=== PATIENT | male | born 1955 | race African-American/Black ===

== ENCOUNTER 2017-02-19 14:32 | Inpatient (IN) ==
[2017-02-19 15:59] LABS: ALLEN TEST NO; BE 2.6 mmoll (-3.0-3.0); BLOOD TYPE ARTERIAL; DRAW SITE R BRACHIAL; METHB 1.6 % (0.0-1.5); PCO2(98.6) 33 mmHg (35-45); PO2(98.6) 76 mmHg (60-100); SAMPLE BLOOD; SAO2 99.1 % (95.0-100.0)
[2017-02-19 16:00] LABS: MODALITY ROOM AIR
[2017-02-19 16:08] LABS: INR 1.15; PROTIME 12.2 Seconds (9.2-11.7)
[2017-02-19 16:17] LABS: BASO% 0.4 % (0.0-0.8); EOS# 0.02 X1000 (0.0-0.7); EOS% 0.3 % (0.0-10.0); HEMATOCRIT 28.8 % (42.0-52.0); HEMOGLOBIN 9.1 g/dL (14.0-18.0); IMM GRAN# 0.02 X1000 (0.0-0.04); IMM GRAN% 0.3 % (0.0-0.5); LYMPH# 2.36 X1000 (1.2-3.4); MANUAL DIFF NEEDED? YES; MCH 29.8 PG (27-31); MCHC 31.6 g/dL (33-37); MCV 94.4 FL (81-99); MONO# 1.75 X1000 (0.11-0.59); MONO% 22.3 % (1.7-9.3); NEUT% 46.7 % (42.2-75.2); PLT 70 X1000 (130-400); PTT 56.7 Seconds (22.0-36.0); RBC 3.05 XMIL (4.7-6.1)
[2017-02-19 16:22] LABS: AGAP 15; ALBUMIN 3.2 g/dL (3.5-5.0); ALKALINE PHOSPHATASE 134 U/L (32-122); BUN 15 mg/dL (8-22); CALCIUM 9.1 mg/dL (8.8-10.2); CHLORIDE 102 mmol/L (98-107); CK PROFILE 105 U/L (24-204); COSMO 285; GOT 40 U/L (10-34); GPT 24 U/L (10-44); POTASSIUM 3.8 mmol/L (3.5-5.1); SODIUM 141 mmol/L (136-145); TCO2 24 mmol/L (25-35); TOTAL BILIRUBIN 0.97 mg/dL (0.20-1.00); TOTAL PROTEIN 6.4 g/dL (6.3-8.3)
[2017-02-19 16:26] LABS: LYMPHS 28 % (21-51); MONO 16 % (1-9)
[2017-02-19] MEDS ORDERED: ATIVAN IV ONE (16:28)
--- NOTE | 2017-02-19 17:20 | PROVIDER DOCUMENTATION ---
This chart was entered by Sweetie Negrete Scribe, acting as scribe for Pam Morton MD. HPI-Neurological Disorder - General Chief Complaint: Altered Mental Status Stated Complaint: WEAKNESS,DISORIENTED Time Seen by Provider: 02/19/17 14:50 Source: patient Allergies/Adverse Reactions: Patient Allergies Allergy/AdvReac Type Severity Reaction Status Date / Time No Known Allergies Allergy Verified 02/19/17 17:07 Home Medications: Home Medication List Medication Instructions Recorded Confirmed Last Taken Type Furosemide [Lasix] 20 meq PO DAILY 06/28/16 11/25/16 11/23/16 08:00 History Gabapentin 300 mg PO DIRECTED 06/28/16 11/25/16 11/25/16 08:00 History Valacyclovir [Valtrex] 500 mg PO BID 06/28/16 11/25/16 11/25/16 08:00 History Zinc Sulfate 220 mg PO DAILY 06/28/16 11/25/16 11/25/16 08:00 History - History of Present Illness-Neuro Nature of Presenting Problem: Pt is a 61 yom who came to the ED with a cc of altered mental status. PT reports he is on chemo for lymphoma and had chemo on Tuesday. The reports that the pt is disorientated and confused. Severity: reports: mild Onset/Duration: reports: 24 hours ago Timing: reports: still present Character of Altered Mental Status: reports: disoriented, confused Any recent trauma/injury?: reports: none Character of Deficits: reports: new weakness, altered sensation, decreased ability to walk Associated Symptoms: reports: confusion, weakness Review of Systems - Adult - REVIEW OF SYSTEMS - ADULT Constitutional: denies: chills, fever Eyes: reports: no symptoms reported Ears, Nose, Mouth & Throat: reports: no symptoms reported Cardiovascular: denies: chest pain, heart murmur, orthopnea Respiratory: reports: no symptoms reported Gastrointestinal: denies: diarrhea, nausea, vomiting Genitourinary: reports: no symptoms reported Musculoskeletal: reports: no symptoms reported Integumentary: reports: no symptoms reported Neurological: reports: slurred speech, syncope. denies: ataxia, paresthesia Psychiatric: reports: no symptoms reported Endocrine: reports: no symptoms reported Hematologic/Lymphatic: reports: no symptoms reported Allergic/Immunologic: reports: no symptoms reported All Other Systems: Reviewed and Negative Past History - Adult - PAST MEDICAL HISTORY-ADULT Review of Records: reports: Nursing Assessment Review Major Childhood Illnesses: reports: denies history Cardiovascular: reports: denies history Respiratory: reports: sleep apnea Gastrointestinal: reports: denies history Obstetrical/Gynecological: reports: denies history Genitourinary: reports: kidney disease Musculoskeletal: reports: denies history Neurological: reports: Seizures/Epilepsy Psychiatric: reports: other (brain tumor) Endocrine/Immune: reports: Leukemia (Followed by Dr. Crockett) Other Conditions: reports: denies history - PRIOR SURGERIES/PROCEDURES Surgical/Procedure History: reports: appendectomy, cholecystectomy, hernia repair, orthopedic (extremity) (left knee) - PRIOR HOSPITALIZATIONS Prior Hospitalizations: reports: for similar symptoms - IMMUNIZATION STATUS Childhood Immunizations: See Nurse Assessment Flu Vaccine: See Nurse Assessment - FAMILY HISTORY Family History: reviewed, not pertinent Physical Exam- Neurological - Physical Exam-Neuro General Appearance: no apparent distress, lethargic HENMT: normocephalic/atraumatic, moist mucous membranes Head Injury: no evidence of injury Neck: non-tender Respiratory: chest non-tender, lungs clear Cardiovascular: normal peripheral pulses, regular rate, rhythm Abdominal Exam: normal bowel sounds, non tender, soft Psych/Mental Status: disoriented x 3 - Glascow Coma Scale Best Eye Response: (3) open to voice Best Verbal Response: (4) confused conversation Best Motor Response: (6) obeys commands Total Glascow Score: 13 Progress - PLAN OF CARE/RESULTS Progress/Plan/Lab Results: Vital Signs - 8 hr 02/19/17 14:35 Temperature 97.4 F L Pulse Rate 107 H Respiratory Rate 20 Blood Pressure 126/83 O2 Sat by Pulse Oximetry 98 Laboratory Results - last 24 hr 02/19/17 02/19/17 02/19/17 14:58 14:58 14:58 WBC RBC Hgb Hct MCV MCH MCHC RDW Std Deviation Plt Count MPV Immature Gran % (Auto) Neut % (Auto) Lymph % (Auto) [place] % (Auto) Eos % (Auto) Baso % (Auto) Immature Gran # (Auto) Neut # (Auto) Lymph # (Auto) [place] # (Auto) Eos # (Auto) Baso # (Auto) Segmented Neutrophils Lymphocytes Monocytes Myelocytes Atypical Lymphocytes Anisocytosis PT 12.2 H INR 1.15 PTT (Actin FS) 56.7 H Specimen Type Sample Site pH pCO2 pO2 HCO3 Base Excess Oxyhemoglobin ABG O2 Sat (Calculated) ABG O2 Saturation ABG Carboxyhemoglobin ABG Methemoglobin Bijan Test A-a O2 Difference Total Hemoglobin Lactate Blood Gas Modality FiO2 % Sodium 141 Potassium 3.8 Chloride 102 Carbon Dioxide 24 L Anion Gap 15 BUN 15 Creatinine 1.2 Estimated GFR/1.73 m2 > 60 BUN/Creatinine Ratio 13 Glucose 153 H Calculated Osmolality 285 Calcium 9.1 Total Bilirubin 0.97 AST 40 H ALT 24 Alkaline Phosphatase 134 H Creatine Kinase 105 Troponin T Total Protein 6.4 Albumin 3.2 L Globulin 3.2 Albumin/Globulin Ratio 1.0 Plasma/Serum Ethyl Alc 02/19/17 02/19/17 02/19/17 14:58 14:58 15:50 WBC 7.86 RBC 3.05 L Hgb 9.1 L Hct 28.8 L MCV 94.4 MCH 29.8 MCHC 31.6 L RDW Std Deviation 19.2 H Plt Count 70 L MPV Not Reportable Immature Gran % (Auto) 0.3 Neut % (Auto) 46.7 Lymph % (Auto) 30.0 [place] % (Auto) 22.3 H Eos % (Auto) 0.3 Baso % (Auto) 0.4 Immature Gran # (Auto) 0.02 Neut # (Auto) 3.68 Lymph # (Auto) 2.36 [place] # (Auto) 1.75 H Eos # (Auto) 0.02 Baso # (Auto) 0.03 Segmented Neutrophils 53 Lymphocytes 28 Monocytes 16 H Myelocytes 1.0 Atypical Lymphocytes 2.0 Anisocytosis 1+ PT INR PTT (Actin FS) Specimen Type ARTERIAL Sample Site R BRACHIAL pH 7.50 H pCO2 33 L pO2 76 HCO3 26.9 H Base Excess 2.6 Oxyhemoglobin 94.1 L ABG O2 Sat (Calculated) 12.0 L ABG O2 Saturation 99.1 ABG Carboxyhemoglobin 3.40 H ABG Methemoglobin 1.6 H Bijan Test NO A-a O2 Difference 32.0 Total Hemoglobin 9.0 L Lactate 1.80 Blood Gas Modality ROOM AIR FiO2 % 21.0 Sodium Potassium Chloride Carbon Dioxide Anion Gap BUN Creatinine Estimated GFR/1.73 m2 BUN/Creatinine Ratio Glucose Calculated Osmolality Calcium Total Bilirubin AST ALT Alkaline Phosphatase Creatine Kinase Troponin T < 0.010 Total Protein Albumin Globulin Albumin/Globulin Ratio Plasma/Serum Ethyl Alc Orders Category Date Time Status Cardiac Monitoring DIRECTED Care 02/19/17 15:31 Active Finger Stick Blood Sugar (ED) DIRECTED Care 02/19/17 15:31 Active Saline Loc NOW Care 02/19/17 15:31 Active CHEST-PORTABLE [RAD] Stat Exams 02/19/17 15:31 Taken HEAD/C-SPINE W/O CONTRAST [CT] Stat Exams 02/19/17 15:32 Taken ABG [RESP] Routine Lab 02/19/17 15:50 Completed ALCOHOL BLOOD Stat Lab 02/19/17 14:58 Completed BLOOD CULTURE [BLDCUL] Stat Lab 02/19/17 15:54 Results CBC WITH ELECTRONIC DIFF [HEME] Stat Lab 02/19/17 14:58 Completed CK PROFILE [SP CHEM] Stat Lab 02/19/17 14:58 Completed COMPREHENSIVE METABOLIC PANEL [CHEM] Stat Lab 02/19/17 14:58 Completed PROTIME WITH INR [COAG] Stat Lab 02/19/17 14:58 Completed PTT [COAG] Stat Lab 02/19/17 14:58 Completed TROPONIN T Stat Lab 02/19/17 14:58 Completed URINALYSIS W/POSS RFLX CULT-1 [URINALYSIS] Stat Lab 02/19/17 15:31 Uncollected URINE DRUG SCREEN Stat Lab 02/19/17 15:31 Uncollected Lorazepam [Ativan] Med 02/19/17 16:28 Discontinued 1 mg IV NOW ONE Pulse Oximetry Stat Oth 02/19/17 15:31 Active EKG [EKG] Stat Ther 02/19/17 15:31 Ordered Result Diagrams: 02/19/17 14:58 02/19/17 14:58 - REASSESSMENT Reassessment #1 Time Reassessed: 17:15 Status: worsening (Pt is agitated and IV Ativan given. Pt's reports that pt has been doing well with normal functional level even though she has been having chemo for stage IV Lymphoma since one year ago.) - CONSULTS/PCP/HOSPITALIST Notification Time Discussed: 17:20 Reason/Comments: Admit to Dr. Daniels Consult Disposition: Admit Departure - Departure Time of Disposition Decision: 17:19 DIAGNOSIS: Altered mental status Qualifiers: Altered mental status type: unspecified Qualified Code(s): R41.82 - Altered mental status, unspecified Disposition: ADMITTED INPATIENT 09 Certified Medical Emergency: Emergent Condition: Stable Referrals and Follow-Ups: Cristi Lowery [Primary Care Provider] - - Critical Care Note This patient required my direct personal management.: No This chart was documented by the indicated scribe, (Sweetie Negrete Scribe) and accurately reflects the services I performed and decisions made by me, Pam Morton MD, as attested by the provider's signature.
[2017-02-19] MEDS ORDERED: NS 1,000 ML IV ONE (17:32)
--- NOTE | 2017-02-19 17:33 | ED EKG INTERP ---
This chart was entered by Sweetie Negrete Scribe, acting as scribe for Pam Morton MD. EKG Interpretation - EKG Time of EKG reading by physician:: 17:26 EKG Read and Signed by:: Pam Morton EKG Interpretation (*Must complete 3 of following elements*): Normal Rate: 104 Rhythm: sinus tachycardia This chart was documented by the indicated scribe, (Sweetie Negrete Scribe) and accurately reflects the services I performed and decisions made by ar, Pam Morton MD, as attested by the provider's signature.
[2017-02-19 17:35] LABS: URINE CULTURE NEEDED? NO; URINE MICRO REVIEW NEEDED? NO; URINE SOURCE CLEAN CATCH
[2017-02-19 17:41] LABS: BILIRUBIN URINE NEGATIVE (NEGATIVE); BLOOD URINE NEGATIVE (NEGATIVE); COLOR YELLOW; GLUCOSE URINE NEGATIVE (NEGATIVE); LEUKOCYTES URINE NEGATIVE (NEGATIVE); NITRITE URINE NEGATIVE (NEGATIVE); PROTEIN URINE TRACE mg/dL (NEGATIVE); SP GRAVITY URINE 1.019; TURBIDITY URINE CLEAR (CLEAR); UROBILINOGEN URINE 2 mg/dL (NORMAL)
[2017-02-19 17:42] LABS: UR EPITHELIAL CELLS <10 /HPF (<10); URINE BACTERIA NEGATIVE /HPF; URINE RBC <10 /HPF (<10); URINE WBC <10 /HPF (<10)
[2017-02-19 17:51] LABS: UR AMPHETAMINES QUAL NONE DETECTED (NONE DETECT); UR BARBITUATES QUAL NONE DETECTED (NONE DETECT); UR BENZODIAZEPIN QUAL NONE DETECTED (NONE DETECT); UR CANNABINOIDS QUAL NONE DETECTED (NONE DETECT); UR COCAINE QUAL NONE DETECTED (NONE DETECT); UR METHADONE QUAL NONE DETECTED (NONE DETECT); UR OPIATES QUAL NONE DETECTED (NONE DETECT); UR OXYCODONE QUAL NONE DETECTED (NONE DETECT); UR PCP QUAL NONE DETECTED (NONE DETECT)
--- NOTE | 2017-02-19 17:53 | Diag Imaging Result Document ---
PROCEDURE NAME: CHEST-PORTABLE - 02/19/2017 PORTABLE CHEST AT 1548 HOURS: FINDINGS: Compared with 02/03/2016. Heart size appears upper normal. Inspiration is mildly shallow. There is mild atelectasis at the left base. The remainder of the lungs appear essentially clear of acute changes. There is no pleural effusion or pneumothorax identified. There is a central venous catheter with its tip at the expected location of the distal superior vena cava. IMPRESSION: Mildly shallow inspiration with mild left basilar atelectasis. Early infiltrate at the left base cannot be entirely excluded.
[2017-02-19] MEDS ORDERED: ROCEPHIN 1 GM/NS 1 GM/50 ML IVPB IV ONE (18:11)
--- NOTE | 2017-02-19 18:29 | Diag Imaging Result Document ---
PROCEDURE NAME: HEAD/C-SPINE W/O CONTRAST - 02/19/2017 CT OF THE HEAD WITHOUT CONTRAST: FINDINGS: A dose reduction protocol was used. No comparison exam. There is no evidence of intracranial hemorrhage, mass effect, midline shift, or hydrocephalus. There is no evidence of infarct, although acute infarcts may not be immediately visible. There is no skull fracture. IMPRESSION: No visible acute intracranial abnormality. No evidence of intracranial injury. CT CERVICAL SPINE WITHOUT CONTRAST: FINDINGS: A dose reduction protocol was used. Axial, sagittal and coronal images are obtained. There is moderate multilevel degenerative disease. There is apparent associated mild narrowing of spinal canal at C5-6 and possibly C6-7, but there is some limitation of detail in this regard due to artifacts. There is no fracture identified. There is no subluxation seen. There is no precervical soft tissue swelling identified. There are 2 small nodular opacities at the visualized apex of the right lung. These appear stable compared to the CT thorax of 01/27/2016. IMPRESSION: Moderate multilevel degenerative disease. No evidence of fracture or subluxation.
[2017-02-19] MEDS ORDERED: ROCEPHIN 1 GM/NS 1 GM/50 ML IVPB ONE (18:35)
--- NOTE | 2017-02-19 18:49 | HISTORY AND PHYSICAL ---
HISTORY OF PRESENT ILLNESS: 61-year-old followed by Dr. Crockett for non-Hodgkin's lymphoma which I believe he has had for a year. He also is getting insulin and that is because of hyperglycemia secondary to prednisone. Apparently he has had appendicitis, had his gallbladder removed. He has had back surgery. I think this was for disk. Interesting he got hit in 2002 I think he was in the batting cage was hit in the back of the head. They did CAT scan, they found a what sounds like a pituitary adenoma and they went in through the nares in [place] and removed the tumor. It did affect his vision, he reported his vision was better after that. He had chemotherapy I think on Tuesday followed by Dr. Crockett. This last 3 or 4 days he has had more confusion. Only thing different is he was taking Cymbalta again. Now I notice he is on Cymbalta, he is on Neurontin and I think he takes some Seroquel as well and some pain medicine [place], he is also on the Valtrex 500 mg p.o. b.i.d. but denies any fever or chills. Denies any focal neurologic signs. Did not describe any tonic-clonic activity muscles to suggest seizure. No recent fall but his balance is not good. States he stares out in space and he just does not seem to understand questions and just seems to be staring off in space but seems to be a little restless but generally weak. REVIEW OF SYSTEMS: Constitutional: They have not reported any change in his weight or eating or bowel habits or gross hematuria, dysuria. Neurologic: No focal changes just poor balance, poor attention. Endocrinologic/hematologic: No significant history other than hyperglycemia which they are given insulin for because of his prednisone which they are treating for a non- Hodgkin's lymphoma. FAMILY HISTORY: Noncontributory. SOCIAL HISTORY: Do not relay any alcohol or tobacco. PHYSICAL EXAM: VITAL SIGNS: Temperature 97.4 degrees, pulse 106, respirations 20, blood pressure 116/79. HEENT: Pupils look equal. I did not appreciate nystagmus. CVP was less than 6 cm. Cranial nerves and motor strength appeared to be symmetrical. Sensation appeared to be symmetrical moving all extremities. He is a bit restless. He does seem to understand the questions but does not necessarily able to answer it. Apparently he can swallow okay. LUNGS: Are clear anterolateral. CARDIOVASCULAR: Regular rhythm, rate without murmur or S3. ABDOMEN: Soft. SKIN: Warm and dry. Weight 220 pounds, height 6 feet. EXTREMITIES: Without clubbing, cyanosis or edema. LABORATORY DATA: White blood cell count 7860, hematocrit 28, platelet count 70,000, neutrophils 46%, lymphocytes were 30%. Sodium 140, potassium 3.8, chloride 102 bicarb 24, BUN 15, creatinine 1.2, glucose 153, calcium 9.1, AST 40, ALT 24, alkaline phosphatase 134, albumin 3.2, pro time 12.2, PTT was 56. Urine drug screen really unremarkable for opiates, oxycodone, methadone, barbiturates, phencyclidine, amphetamines, benzodiazepines, urine cocaine, urine cannabinoids and serum ethanol urine was clear. Blood gas pH was 7.50, pCO2 33, PO2 76, O2 saturation was 94%. Chest x-ray, mild shallow inspiration, mild left basilar atelectasis, early infiltrate at the left base cannot be entirely excluded. CT of his head I did not see anything acutely, no sign of bleed or infarct. ASSESSMENT AND PLAN: 1. I am suspicious that he has got metabolic encephalopathy and appears to be consistent with a serotonin syndrome. He recently added Cymbalta to his regimen, he is on Seroquel as well. He is taking gabapentin so we are going to hold those including the gabapentin at this point and the Seroquel and Cymbalta, give him some IV fluids. He appears to be a little bit intravascularly volume depleted, those labs look pretty good. 2. Mild intravascular volume depletion. Give him some IV normal saline. 3. We will go ahead and pattern sugars since he was taking insulin at home because of his prednisone, will see how sugars do. We will continue his Valtrex and his zinc sulfate. We will hold Lasix and gabapentin for now. We will check T4 and TSH, B12 and folate in the morning as well as general electrolytes and magnesium and recheck a CBC, will go ahead and check a CPK and troponin as well. Will give him normal saline at 85 mL an hour. We will get an EKG tonight and compare with 1 in the morning and put him on child monitor. cc: Bijan Nowak MD
[2017-02-19] MEDS ORDERED: HALDOL IV ONE (20:01)
[2017-02-19] MEDS ORDERED: TYLENOL PO PRN (21:07)
[2017-02-19] MEDS ORDERED: VALTREX PO SCH (21:07)
[2017-02-19] MEDS ORDERED: ZOFRAN IV PRN (21:07)
[2017-02-19 21:45] LABS: HEMOGLOBIN A1C 5.8 % (4.8-6.0)
[2017-02-19] MEDS ORDERED: STERILE WATER INJ. INJ PRN (22:03)
[2017-02-19] MEDS: HUMULIN R SUBQ SCH (22:30)
[2017-02-19] MEDS: NS 1,000 ML IV SCH (22:39)
[2017-02-19] MEDS: GEODON IM PRN (23:28)
[2017-02-20 05:23] LABS: BASO% 0.3 % (0.0-0.8); EOS# 0.02 X1000 (0.0-0.7); EOS% 0.3 % (0.0-10.0); HEMATOCRIT 25.9 % (42.0-52.0); HEMOGLOBIN 8.1 g/dL (14.0-18.0); LYMPH# 1.82 X1000 (1.2-3.4); MANUAL DIFF NEEDED? YES; MCH 29.3 PG (27-31); MCHC 31.3 g/dL (33-37); MCV 93.8 FL (81-99); MONO# 1.83 X1000 (0.11-0.59); MONO% 28.2 % (1.7-9.3); MPV 12.3 FL (7.4-10.4); NEUT% 43.2 % (42.2-75.2); PLT 81 X1000 (130-400); RBC 2.76 XMIL (4.7-6.1)
[2017-02-20 05:25] LABS: INR 1.16; PROTIME 12.3 Seconds (9.2-11.7); PTT 32.1 Seconds (22.0-36.0)
[2017-02-20 05:38] LABS: LYMPHS 24 % (21-51); MONO 14 % (1-9)
[2017-02-20 05:40] LABS: AGAP 15; ALBUMIN 2.9 g/dL (3.5-5.0); ALKALINE PHOSPHATASE 120 U/L (32-122); BUN 15 mg/dL (8-22); CHLORIDE 105 mmol/L (98-107); COSMO 285; GOT 36 U/L (10-34); GPT 20 U/L (10-44); MAGNESIUM 1.7 mg/dL (1.5-2.7); POTASSIUM 3.6 mmol/L (3.5-5.1); SODIUM 142 mmol/L (136-145); TCO2 22 mmol/L (25-35); TOTAL BILIRUBIN 0.77 mg/dL (0.20-1.00); TOTAL PROTEIN 6.1 g/dL (6.3-8.3)
[2017-02-20 05:59] LABS: FREE T4 1.11 ng/dL (0.93-1.70)
[2017-02-20] MEDS: HUMULIN R SUBQ SCH ×4 (06:10→21:21)
[2017-02-20] MEDS: PRILOSEC PO SCH (09:33)
[2017-02-20] MEDS: NS 1,000 ML IV SCH ×2 (09:33→21:21)
[2017-02-20] MEDS: ZINC SULFATE PO SCH (09:35)
[2017-02-20] MEDS: ATIVAN IV PRN ×7 (09:53→23:37)
--- NOTE | 2017-02-20 10:50 | PROGRESS NOTE ---
DATE: 02/20/2017 SUBJECTIVE: Mr. Thibodeaux still very agitated. He is talking to me and he is able to cooperate today. I do not feel a lot rigidity. His tremor is gone in his muscles. There is no ocular myoclonus and I cannot elicit any myoclonus now. He seemed to be oriented at least to person but he still very restless and agitated. OBJECTIVE: Vital signs: Blood pressure looks better, pulse is down to 90, temp 98.8 degrees, pulse 89, respirations 22, blood pressure 133/64. Neck: CVP less than 6 cm. Lungs: Clear in all lung reis. Cardiovascular: Regular rhythm and rate without murmur or S3. Intake and output: Urine output over 2 L. LAB: White count 6,490, hematocrit 25, platelet count 81,000. Chemistries: Blood sugar 120, 131. Lab this morning. Sodium 142, potassium 3.6, chloride 105, bicarb 22, BUN 15, creatinine 1.1. B12 was 1,259. Folate was 30.4. T4 1.11. Folate 2.29. Creatine kinase is only 164. ASSESSMENT AND PLAN: Hyper serotonin syndrome, serotonin toxicity syndrome. Continue to hold the Neurontin, Seroquel, and his pain medicine. He was on a serotonin uptake inhibitor which we are not sure when he stopped that but I think clinically he has mildly improved. Will use Ativan. Continue his IV fluid. Reassurance to the family that I do not see any focal neurologic deficits. I do not see any evidence of hyper neuroleptic malignant syndrome or any evidence of any stroke or central neurologic event. We will use Ativan 1-2 mg IV p.r.n. agitation and continue to follow and monitor. cc: Bijan Nowak MD
--- NOTE | 2017-02-20 10:54 | Diag Imaging Result Document ---
PROCEDURE NAME: CHEST-1 VIEW - 02/20/2017 CHEST SINGLE VIEW: COMPARISON: Compared to 02/19/2017. FINDINGS: There is a right-sided [id number]. No pneumothorax. Poor inspiratory effort. The heart is not enlarged. The vessels are not distended. No pleural effusions identified. No consolidation. IMPRESSION: Stable chest.
--- NOTE | 2017-02-20 16:28 | CONSULTATION ---
DATE OF CONSULTATION: 02/20/2017 REQUESTING PHYSICIAN: Dr. Nowak. CHIEF COMPLAINT: Patient is a 61-year-old male who was admitted with change in mental status. HPI: He is well known to me. He has non-Hodgkin lymphoma, a variant of CLL/diffuse large B-cell lymphoma, very aggressive behaving malignancy with which he was diagnosed about a year ago. He received R-CHOP chemotherapy initially and unfortunately his disease progressed. He has seen oncologist at [facility] and has subsequently received multiple lines of chemotherapy. His disease continues to progress despite this. [facility] does not have any clinical trials for him. He is almost getting to end-stage at this time. Most recently, his chemotherapy has been compromised due to persistent thrombocytopenia. He is currently very confused. History is obtained from the chart as well as from his sister-in- law. She reports up to about a week ago he was in his usual state of health. At that time he started to have gait instability. Now over the last few days he has had worsening confusion. He has neuropathy for which he has been on Neurontin. He also is on some Seroquel. Recently Cymbalta was added. Dr. Jacome suspected serotonin syndrome and those medicines have been stopped at this time. PAST MEDICAL HISTORY: 1. Lymphoma as discussed. 2. Peripheral neuropathy. 3. Diabetes. SOCIAL HISTORY: Patient is and lives with his . Denies smoking, alcohol, or substance abuse. FAMILY HISTORY: Noncontributory. ALLERGIES: NKDA. CURRENT MEDICATIONS: Rocephin, Humulin, Ativan, Prilosec, Zofran, Geodon. REVIEW OF SYSTEMS: Could not be obtained. PHYSICAL EXAMINATION: General: Patient is in deep sleep at this time. Vital signs: Temperature 100.4 degrees T-max, T current is 98.8, pulse 89, blood pressure 133/64. HEENT: EOMI. Anicteric. Mucous membranes appear moist. Cardiac Exam: Regular rate and rhythm. Normal S1, S2. Chest: Clear to auscultation. Abdomen: Protuberant, soft, nontender, without hepatosplenomegaly or masses. Extremities: No cyanosis, clubbing, or edema. Neurological: He is moving all 4 extremities. Lymph node survey: Large 10-12 cm lymph node mass is noted in his right groin as well as in his right axilla. He also other small lymph nodes. LABORATORY DATA: White count 6.4, hemoglobin 8.1, hematocrit 25, MCV 93, platelets 81,000. BUN 15, creatinine 1.1. LFTs are normal. B12, folate levels are adequate. UA is negative. RADIOLOGY: CT of the head and C-spine: No intracranial pathology. ASSESSMENT/PLAN: 1. Change in mental status: Etiology at this time is unclear. He has a slight fever. This could be infectious/metabolic/drug induced. Agree with stopping all medications that could have led to syndrome. He is on antibiotics. Continue to monitor closely. 2. Chronic lymphocytic leukemia/diffuse large B-cell lymphoma: He is nearing end-stage from that standpoint. His therapy has been compromise due to persistent thrombocytopenia. I have had a discussion with him about this and he has voiced understanding in the clinic. Today I also discussed this with his [id number] who was at the bedside. Continue to do the best we can for him but I suspect that in the near future he will probably be on hospice. 3. Thrombocytopenia: B12, folate levels are adequate. This is due to bone marrow suppression from multiple lines of chemotherapy. 4. Fevers: Urinalysis is negative. Monitor blood cultures. Continue antibiotic. cc: Deepak Crockett MD
[2017-02-20] MEDS: ROCEPHIN 1 GM/NS 1 GM/50 ML IVPB IV SCH (18:22)
[2017-02-21] MEDS: ATIVAN IV PRN ×5 (01:33→12:59)
[2017-02-21 05:21] LABS: BASO% 0.3 % (0.0-0.8); EOS# 0.03 X1000 (0.0-0.7); EOS% 0.3 % (0.0-10.0); HEMATOCRIT 27.1 % (42.0-52.0); HEMOGLOBIN 8.5 g/dL (14.0-18.0); IMM GRAN# 0.02 X1000 (0.0-0.04); IMM GRAN% 0.2 % (0.0-0.5); LYMPH# 2.38 X1000 (1.2-3.4); LYMPH% 27.3 % (20.5-51.1); MANUAL DIFF NEEDED? YES; MCH 29.3 PG (27-31); MCHC 31.4 g/dL (33-37); MCV 93.4 FL (81-99); MONO# 2.17 X1000 (0.11-0.59); MONO% 24.9 % (1.7-9.3); MPV 12.5 FL (7.4-10.4); PLT 78 X1000 (130-400)
[2017-02-21 05:38] LABS: AGAP 16; ALKALINE PHOSPHATASE 114 U/L (32-122); BUN 10 mg/dL (8-22); CALCIUM 9.2 mg/dL (8.8-10.2); CHLORIDE 100 mmol/L (98-107); COSMO 273; GOT 38 U/L (10-34); GPT 20 U/L (10-44); MAGNESIUM 1.6 mg/dL (1.5-2.7); SODIUM 137 mmol/L (136-145); TCO2 21 mmol/L (25-35); TOTAL BILIRUBIN 0.97 mg/dL (0.20-1.00); TOTAL PROTEIN 6.1 g/dL (6.3-8.3)
[2017-02-21] MEDS: HUMULIN R SUBQ SCH ×4 (06:03→20:24)
[2017-02-21 06:14] LABS: BANDS 4 % (0-1); HYPOCHROM 1+; LYMPHS 24 % (21-51); MONO 18 % (1-9)
--- NOTE | 2017-02-21 06:27 | EKG Report ---
Test Performed on : 02/20/2017 06:21:40 AM Test Reason : evaluate qtc Blood Pressure : / mmHG Vent. Rate : 089 BPM Atrial Rate : 089 BPM P-R Int : 232 ms QRS Dur : 086 ms QT Int : 384 ms P-R-T Axes : 049 042 048 degrees QTc Int : 467 ms Sinus rhythm. with 1st degree AV block. Otherwise normal ECG When compared with ECG of 19-FEB-2017 17:26, (Unconfirmed) NV interval has increased Confirmed by Asha QUISPE, Rodrigo Hilliard ([id number]) on 02/21/2017 8:15:49 AM
[2017-02-21] MEDS: NS 1,000 ML IV SCH ×2 (08:45→20:23)
--- NOTE | 2017-02-21 10:02 | PROGRESS NOTE ---
DATE: 02/21/2017 SUBJECTIVE: Mr. Thibodeaux slept pretty much since 4:30. We had given him Ativan. He is sleeping pretty sound, difficult to arouse. He is moving all extremities. Noticed a little bit of signs of sleep apnea as well. OBJECTIVE: Vital Signs: Temperature 100.8 degrees, pulse 106, respirations 24, and blood pressure 131/71. HEENT: Pupils were equal, round. Neck: CVP less than 6 cm. Lungs: Clear in all lung reis. Cardiovascular: Regular rhythm and rate without murmur or S3. Abdomen: Soft. Skin: Warm and dry. Genitourinary: Good urine output. LABORATORIES: White count 8710, hematocrit 27, platelet count 78,000. Sodium 137, potassium 4.0, chloride 100, bicarb 21, creatinine 1.1. Blood sugar 160, 98, 100. He had a CT of the head done on the , and of the neck. No sign of intracranial injury. Moderate multiple level degenerative disk disease in the cervical spine. Dr. Deepak Crockett involved. He has chronic lymphocytic leukemia, diffuse large B-cell lymphoma. He is near end-stage from that standpoint. His therapy has been compromised due to persistent thrombocytopenia. Had a discussion with him and voiced an understanding in the clinic. Dr. Deepak Crockett has had a consultation with him and voiced his understanding. Discussed with [id number] at the bedside. Still feels like his general metabolic encephalopathy is consistent with serotonin syndrome. We will back down on his Ativan before. General nutrition and labs, note his blood sugars looked well controlled. cc: Bijan Nowak MD
[2017-02-21] MEDS: PRILOSEC PO SCH (10:38)
[2017-02-21] MEDS: ZINC SULFATE PO SCH (10:39)
[2017-02-21] MEDS ORDERED: BLISTEX MEDICATED BERRY LIP BALM TOP PRN (17:44)
[2017-02-21] MEDS: ROCEPHIN 1 GM/NS 1 GM/50 ML IVPB IV SCH (17:51)
[2017-02-21] MEDS: GEODON IM PRN (17:52)
--- NOTE | 2017-02-21 18:14 | Diag Imaging Result Document ---
PROCEDURE NAME: MRI BRAIN W W/O CONTRAST - 02/21/2017 MRI BRAIN WITH AND WITHOUT IV CONTRAST: COMPARISON: None available. FINDINGS: There is no evidence of acute infarct. There is mild patchy T2/FLAIR hyperintensity in the periventricular and subcortical white matter suggesting mild microangiopathy. There is no evidence of intracranial mass, mass effect, or intracranial hemorrhage. There is no evidence of abnormal intracranial enhancement. Surrounding soft tissues and bony structures are essentially unremarkable. There is no evidence of hydrocephalus. IMPRESSION: Mild T2/FLAIR signal hyperintensity in the periventricular and subcortical white matter suggesting mild microangiopathy most likely. No evidence of acute intracranial pathology.
[2017-02-21] MEDS ORDERED: OFIRMEV 1000 MG/ISOTONIC SOLN 1,000 MG/100 ML BOTTLE IV PRN ×2 (23:22→23:25)
[2017-02-22] MEDS: ATIVAN IV PRN ×2 (02:24→12:48)
[2017-02-22 05:07] LABS: BASO% 0.3 % (0.0-0.8); EOS# 0.03 X1000 (0.0-0.7); EOS% 0.3 % (0.0-10.0); HEMATOCRIT 30.6 % (42.0-52.0); HEMOGLOBIN 9.9 g/dL (14.0-18.0); IMM GRAN# 0.04 X1000 (0.0-0.04); IMM GRAN% 0.4 % (0.0-0.5); LYMPH# 2.55 X1000 (1.2-3.4); MANUAL DIFF NEEDED? YES; MCH 30.1 PG (27-31); MCHC 32.4 g/dL (33-37); MONO% 26.4 % (1.7-9.3); NEUT% 48.6 % (42.2-75.2); PLT 78 X1000 (130-400); RBC 3.29 XMIL (4.7-6.1)
[2017-02-22 05:24] LABS: AGAP 20; ALBUMIN 2.9 g/dL (3.5-5.0); ALKALINE PHOSPHATASE 112 U/L (32-122); BUN 13 mg/dL (8-22); CALCIUM 9.5 mg/dL (8.8-10.2); CHLORIDE 99 mmol/L (98-107); COSMO 274; GOT 37 U/L (10-34); GPT 17 U/L (10-44); MAGNESIUM 1.8 mg/dL (1.5-2.7); POTASSIUM 4.3 mmol/L (3.5-5.1); SODIUM 137 mmol/L (136-145); TCO2 18 mmol/L (25-35); TOTAL BILIRUBIN 0.93 mg/dL (0.20-1.00); TOTAL PROTEIN 5.9 g/dL (6.3-8.3)
[2017-02-22] MEDS: HUMULIN R SUBQ SCH ×4 (06:35→20:12)
[2017-02-22 06:45] LABS: LYMPHS 26 % (21-51); MONO 12 % (1-9)
[2017-02-22] MEDS: NS 1,000 ML IV SCH ×2 (08:11→19:00)
[2017-02-22] MEDS: PRILOSEC PO SCH (08:16)
[2017-02-22] MEDS: ZINC SULFATE PO SCH (08:16)
--- NOTE | 2017-02-22 08:28 | CONSULTATION ---
DATE OF CONSULTATION: 02/21/2017 CONSULTATION REQUESTED BY: This patient is seen in consultation at the request of Dr. Nowak. REASON FOR CONSULTATION: Evaluation of altered mental status and possible serotonin syndrome. 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 His last dose of chemotherapy was on 02/14/17. There is also a history of one witnessed seizure about 10-15 years ago. The patient was admitted on February 19 with progressively worsening mental status changes. I was able to speak with his son on the telephone this afternoon who gave me the details. The patient is unable to provide any information due to his mental status. The son says that he was in his usual state of health. He started a new medication, Cymbalta, some time around the week of February 07, which he took for a handful of days and then discontinued this medication on February 12. He had chemo a couple of days later on 02/14 and then on Tuesday the , he was noted to be confused, saying things that did not make any sense. He was calling his son by various other people's names. He was staring off into space at times. He was also complaining that he was dizzy and his gait was staggering. No fevers or chills or other signs or symptoms were noted. He progressively worsened during the week so they brought him into the ED. There was concern for serotonin syndrome due to his medications as well as autonomic instability, blood pressure and pulse being variable and patient agitation. His Cymbalta, gabapentin, Seroquel, and his pain medications are on hold and he was given Ativan as needed. He has also been put on ceftriaxone. He has developed a low grade fever. A noncontrasted head CT did not show any acute findings. His agitation has improved on ativan and he has been more drowsy. Of note, the son says the patient had a head injury 10-15 years ago and that he witnessed the patient have a seizure about 3 weeks after the head injury. The patient came into the room, fell down in front of him and was shaking all over. This lasted for maybe 4 or 5 minutes and he was confused afterwards. He was seen in the emergency room but they do not recall him being on any medications for this. He has not had any further events with shaking, however, he did have an episode of fainting more recently, maybe a few months ago. PAST MEDICAL HISTORY: 1. CLL/diffuse large B cell lymphoma. 2. Peripheral neuropathy. 3. Blood glucose elevation in setting of steroid treatment for cancer SOCIAL HISTORY: He is and lives with his . He has been a nonsmoker. No alcohol or substance abuse. FAMILY HISTORY: His family history is noncontributory. ALLERGIES: No known drug allergies. MEDICATIONS, CURRENT: 1. Ceftriaxone. 2. Lorazepam p.r.n. 3. Zofran p.r.n. 4. Omeprazole. 5. Insulin. 6. Tylenol. 7. Zinc sulfate. 8. Geodon. REVIEW OF SYSTEMS: Review of systems was unable to be conducted due to the patient's mental status. PHYSICAL EXAMINATION: Vital signs: Temperature 100.0 Fahrenheit, blood pressure 130s to 140s over 70s, pulse 104-106, respiratory rate 24. Room air. General: Somnolent. Snoring. HEENT: Anicteric. Mucous membranes are dry. Cardiac: Regular rate and rhythm. Lungs: Clear anteriorly. Abdomen: Soft, nontender. Extremities: No cyanosis. No edema. Neurologic: MENTAL STATUS: somnolent, arouses to loud voice briefly, will look towards you before drifting back into sleep. Not following commands. Unable to wake up and speak. CRANIAL NERVES: PERRL. Miotic; 3-->2 OU. Dolls eyes +. Face appears to be symmetrical. No nystagmus. MOTOR: Normal bulk and tone. No fasciculations. No abnormal movements. He moves all extremities against gravity and away from painful stimulus. REFLEXES: symmetric and reduced throughout. Equivocal Babinski on the right, flexor on left. No clonus. No Quesada's. SENSORY: He responds to painful sensation on all extremities. CEREBELLAR/COORDINATION/GAIT:Unable to assess due to mental status. DIAGNOSTIC DATA: White count 8.71, hemoglobin 8.5, hematocrit 27.1, platelets 78. INR 1.16. Sodium 137, potassium 4, carbon dioxide 21, BUN 10, creatinine 1.1, glucose 98. A1c 5.8. Calcium 9.2, magnesium 1.6, AST 38, ALT 20, alkaline phosphatase 114. CK 164. Vitamin B12 is 1259. Folate 30.4. TSH 2.29. Free T4 is 1.11. Urinalysis: No evidence of infection. Toxicology screen was negative. Chest x-ray: Early infiltrate at the left base cannot be entirely excluded. Head CT was personally reviewed and agree with the interpretation of the radiologist. There is no acute intracranial abnormality. ASSESSMENT AND PLAN: This is a 61-year-old right-handed male with a history of aggressive CLL/diffuse large B cell lymphoma, on chemotherapy and steroids, h/o possible remote seizure 3 weeks after a head injury, who presents with progressively worsening altered mental status and complaints of dizziness and gait instability since last week. He has been treated for possible serotonin syndrome with prn ativan and withholding cymbalta, gabapentin, seroquel and pain medications due to initially having autonomic instability and agitation, though this has improved since his admission. A noncontrasted head CT was unremarkable. A chest x-ray showed possible left lower lobe early infiltrate. Encephalopathy: The differential diagnosis of this patient's altered mental status includes drugs/medication effects, infection ([employer] or otherwise), subclinical seizures, and intracerebral pathology, though there is no clear focality on examination. 1. Agree with treatment of possible serotonin syndrome. Would also caution use of zofran. 2. MRI brain w/wo contrast; eval cancer involvement as well as stroke 3. Given his h/o cancer and treatment with chemotherapy and steroids, would recommend lumbar puncture to r/o infection. Would suggest considering obtaining a large volume tap to send also for cytology , if his oncologist agrees. 4. Routine EEG to evaluate encephalopathy and evidence for underlying seizure propensity. H/o seizure and more recent "fainting spell;" staring into space 5. Agree with reducing sedating medications. Let's see how he is now when more alert. 6. Monitor possible lower lobe infiltrate on CXR. Thank you for this consultation. Will follow. cc: Ania Coffman MD [facility]
--- NOTE | 2017-02-22 09:16 | PROGRESS NOTE ---
DATE: 02/22/2017 SUBJECTIVE: Mr. Thibodeaux was sleeping. The family said he did a little better yesterday, woke up and grunted some, seemed to be a little more relaxed. He did have a fever; I think he got up to 101 yesterday. OBJECTIVE: Vital Signs: Temp 98.2 degrees, pulse 100, respirations 20, blood pressure 105/76. HEENT: The pupils are equal, round. CVP less than 6 cm. Lungs: Clear in all lung reis. Cardiovascular exam: Regular rhythm and rate without murmur or S3. LABS AND X-RAYS: Urine output was over 3 L. White count 10,610, hematocrit 30, platelet count 78,000. Chemistry: Sodium 137, potassium 4.3, chloride 99, bicarbonate 18. BUN 13, creatinine 1.1. Blood sugars 109, 106, 90 and 91. Brain MRI done yesterday suggested mild microangiopathy, most likely no evidence of acute intracranial pathology. No evidence of hydrocephalus. Appreciate Dr. Ania Coffman. IMPRESSION: 1. This is a 61-year-old with a history of diffuse large B-cell lymphoma aggressively treated and possibly remote seizure 3 weeks after head injury in the past with general encephalopathy. I still believe that is most consistent with hyper serotonin. We have backed down on his Ativan. He is having a little bit of a temperature. We will hold off on Tylenol and will watch and obtain blood cultures if he spikes a temp above 101.2. I really do not see any focus of infection at this time. 2. History of a diffuse large B-cell lymphoma, and apparently is not on treatment now and it has progressed with treatment, so may be approaching end-stage for his lymphoma. 3. Nutrition has been good. Hopefully can wake up and start eating again. 4. Thrombocytopenia. B 12 and folate levels are adequate. Review of his orders: We will stop the Geodon. We will continue the zinc sulfate. He is on ceftriaxone; I guess we will continue that for now. We will stop his Tylenol. cc: Bijan Nowak MD
[2017-02-22] MEDS ORDERED: ATIVAN IV ONE ×2 (16:15→16:30)
[2017-02-22] MEDS: ROCEPHIN 1 GM/NS 1 GM/50 ML IVPB IV SCH (17:30)
--- NOTE | 2017-02-22 17:39 | PROGRESS NOTE ---
DATE: 02/22/2017 SUBJECTIVE: The patient became a little more alert yesterday or overnight, and today he was trying to get out of bed, so he was given a dose of Ativan around lunchtime. He spiked a temperature as high as 102.5 late last night, and today it has been up to 100.9. He was given Tylenol for this. OBJECTIVE: Vital signs: Reviewed. Again, patient's temperature was as high as 102.5 overnight. LABORATORY: White count 10.6, hemoglobin 10, hematocrit 31, platelets 78. Sodium 137, potassium 4.3, carbon dioxide 18, BUN 13, creatinine 1.1, glucose 91. AST 37, ALT 17. CK 112. MRI of the brain with and without contrast was personally reviewed and agree with radiology interpretation. He has mild T2 FLAIR signal hyperintensity in the periventricular and subcortical white matter suggesting mild microangiopathy. No acute findings. A chest x-ray on admission showed possible left lower lobe early infiltrate. EEG: moderate generalized slowing indicative of a moderate encephalopathy. No evidence for seizure though this does not rule out a seizure disorder. ASSESSMENT AND PLAN: This is a 61-year-old right-handed male with a history of progressive chronic lymphocytic leukemia/diffuse large B cell lymphoma, on chemotherapy and steroids, history of possible remote seizure three weeks following a head injury, who presents with progressively worsening altered mental status with dizziness and gait instability over last week. 1. Encephalopathy. The differential diagnosis of patient's altered mental status includes drugs/medication effects, infection ([employer] or otherwise), subclinical seizures. 2. The patient has spiked a temperature as high as 102.5 overnight. Would recommend lumbar puncture to rule out infection. If doing a lumbar puncture, would recommend a high-volume tap to obtain enough cerebrospinal fluid to send for cytology as well. He has been on ceftriaxone. Recommend to cover for meningitis until CSF results. 3. EEG shows moderate encephalopathy but no evidence for seizure at this time. 4. Agree with reducing sedating medications as able. 5. Monitor the possible lower lobe infiltrate on chest x-ray. cc: Ania Coffman MD [facility]
[2017-02-22 17:42] LABS: DIFF NEEDED? NO
[2017-02-22 17:52] LABS: DIFF NEEDED? NO
[2017-02-22 18:07] LABS: GLUCOSE CSF 60 mg/dL (39-75)
[2017-02-22 18:12] LABS: FLOW CYTOMETERY SOURCE CSF; LEUKEMIA LYMPHOMA BY FLOW REFERRED FOR TESTING
[2017-02-22 19:07] LABS: APPEARANCE CLEAR; APPEARANCE RED; RBC BF 136 /cumm; RBC BF 14040 /cumm; WBC BF 0 /cumm
--- NOTE | 2017-02-22 19:07 | OPERATIVE NOTE ---
PROCEDURE DATE : 02/22/2017 PROCEDURE: Lumbar puncture. INDICATION FOR PROCEDURE: This is a 61-year-old male with CLL/large B cell lymphoma on chemotherapy who presents with altered mental status and fevers. The patient's son consented to the procedure after the risks and benefits were explained and all questions were answered. The patient is unable to consent because of his mental status changes. The patient had a lumbar puncture done in the left lateral decubitus position. He was prepped and draped in the usual sterile fashion. After some difficulty with obtaining the CSF initially, it was ultimately obtained with the assistance of Dr. Harirs. The opening pressure was 13 cm CSF. The CSF was collected in 4 tubes (approximately 15-16cc ) and sent for testing. The patient tolerated the procedure well. cc: Ania Coffman MD [facility]
--- NOTE | 2017-02-22 19:21 | EEG REPORT ---
DATE: 02/21/2017 EEG #: [id number]. REFERRING PHYSICIAN: Ania Coffman MD OIL RIGGER: Maxine Suarez. ROUTINE: BACKGROUND INFORMATION: TECHNIQUE: This is a digitally recorded EEG with 1 EKG channel. HISTORY OF PRESENT ILLNESS: A 61-year-old right-handed male with history of non-Hodgkin's lymphoma, variant CLL, diffuse large B cell lymphoma on chemotherapy. There is history of a witnessed seizure 10-15 years ago which occurred about 3 weeks following a head injury. He has not been on medications that they know of. No further events. He was admitted with progressive altered mental status and gait difficulty. Routine EEG is ordered to evaluate encephalopathy and detect evidence of possible seizures. EEG FINDINGS: Alpha rhythm: A posterior dominant alpha rhythm is not seen. Background: There is primarily theta more than delta slowing. There are some admixed faster frequencies. Spontaneous variability is fair. Reactivity is fair. Waveforms: No epileptiform discharges. Focal slowing: None. Hyperventilation: Was not performed. Photic stimulation: Produced no driving response. Sleep findings: The patient is drowsy for most of the study and stage II sleep is seen. EKG: Regular R-R interval. IMPRESSION AND RECOMMENDATIONS: Abnormal routine EEG due to: 1. Moderate generalized background slowing indicative of a moderate encephalopathy. Generalized slowing is a nonspecific finding that can be seen in processes that diffusely affect the cerebrum including toxic, metabolic, posthypoxic, pharmacologic, or infectious conditions. 2. No epileptiform abnormalities or seizures were noted. This does not rule out an underlying seizure disorder. cc: MD Bijan Mariano MD
[2017-02-23] MEDS: ATIVAN IV PRN (00:03)
[2017-02-23 05:41] LABS: BASO% 0.3 % (0.0-0.8); EOS# 0.03 X1000 (0.0-0.7); EOS% 0.3 % (0.0-10.0); HEMATOCRIT 30.5 % (42.0-52.0); HEMOGLOBIN 9.5 g/dL (14.0-18.0); IMM GRAN# 0.02 X1000 (0.0-0.04); IMM GRAN% 0.2 % (0.0-0.5); LYMPH# 3.01 X1000 (1.2-3.4); LYMPH% 31.1 % (20.5-51.1); MANUAL DIFF NEEDED? YES; MCH 29.1 PG (27-31); MCHC 31.1 g/dL (33-37); MCV 93.3 FL (81-99); MONO# 2.95 X1000 (0.11-0.59); MONO% 30.5 % (1.7-9.3); MPV 13.1 FL (7.4-10.4); NEUT% 37.6 % (42.2-75.2); PLT 68 X1000 (130-400); RBC 3.27 XMIL (4.7-6.1)
[2017-02-23 06:00] LABS: AGAP 18; ALBUMIN 3.2 g/dL (3.5-5.0); ALKALINE PHOSPHATASE 107 U/L (32-122); BUN 16 mg/dL (8-22); CALCIUM 9.3 mg/dL (8.8-10.2); CHLORIDE 97 mmol/L (98-107); COSMO 275; GOT 46 U/L (10-34); GPT 19 U/L (10-44); MAGNESIUM 1.8 mg/dL (1.5-2.7); POTASSIUM 4.1 mmol/L (3.5-5.1); SODIUM 136 mmol/L (136-145); TCO2 21 mmol/L (25-35); TOTAL BILIRUBIN 0.85 mg/dL (0.20-1.00); TOTAL PROTEIN 5.9 g/dL (6.3-8.3)
[2017-02-23] MEDS: HUMULIN R SUBQ SCH ×4 (06:27→21:15)
[2017-02-23] MEDS: NS 1,000 ML IV SCH ×2 (06:28→20:35)
[2017-02-23 07:22] LABS: BANDS 2 % (0-1); LYMPHS 29 % (21-51); MONO 20 % (1-9)
--- NOTE | 2017-02-23 07:46 | PROGRESS NOTE ---
DATE: 02/23/2017 PATIENT LOCATION: [facility] bed 11. Mr. Thibodeaux seems a little bit more alert today. He was not attentive and did not communicate or follow commands. He moved all of his limbs. There is no meningismus. He does not have evidence of hematoma at the site of the LP yesterday. CSF showed no white cells, high number of red cells as expected on the initial tube which cleared. Culture report is pending. Gram stain was negative. We will await the CSF cytology report. No new suggestion today from a neurologic standpoint. cc: Yasemin Harris III, MD
[2017-02-23] MEDS: ZINC SULFATE PO SCH (09:23)
[2017-02-23] MEDS: PRILOSEC PO SCH (09:23)
--- NOTE | 2017-02-23 09:45 | PROGRESS NOTE ---
DATE: 02/23/2017 SUBJECTIVE: Mr. Thibodeaux was sleeping. He was able to arouse, able to moan a few questions and then go right back to sleep. I do notice he has got some obstructive sleep apnea and maybe some central apnea as well, watching his pattern and watching him breathe. His fever got up to 102.2 yesterday. It is down to 99.9 at the present time. PHYSICAL EXAMINATION: Vital Signs: Pulse 100, respirations 16, blood pressure 124/70. Lungs: Are clear in all lung reis. Cardiovascular Examination: Regular rhythm and rate without murmur or S3. Abdomen: Soft. Skin: Is warm and dry. Is and Os: Urine output over 2 L. LAB: White count 9670, hematocrit 30, platelet count 68,000, his lymphocytes were 31%. ASSESSMENT AND PLAN: 1. Altered mental status with sensorium. Performed a spinal tap yesterday. I suspect a serotonin syndrome but it may be multifactorial. He does have a history of lymphoma and diffuse large B-cell lymphoma. The patient is still very lethargic. He seems to be able to arouse. He seems to be less agitated, less autonomic agitation. We did an MRI of the brain and CT of the head, and it was unremarkable. Dr. Ania Coffman is following. He is having fever which may be consistent more with the lymphoma. He really is not waking up much at all, which is discouraging. We will back down on any sedation. We will give him Ativan just as needed. Of course, he required something for the spinal tap. 2. Diffuse large B-cell lymphoma. 3. Thrombocytopenia, aware. 4. Review of his orders. Continue the ceftriaxone 1 g every 24 hours, although they do not have any source of bacterial infection identified. Check a chest x-ray this morning. His blood work from this morning, hematocrit stable at 30. He does have a platelet count of 68,000. Electrolytes look good. Blood sugars have been 110, 128, 129. cc: Bijan Nowak MD
--- NOTE | 2017-02-23 10:47 | EKG Report ---
Test Performed on : 02/23/2017 10:15:36 AM Test Reason : CP Blood Pressure : / mmHG Vent. Rate : 106 BPM Atrial Rate : 106 BPM P-R Int : 180 ms QRS Dur : 080 ms QT Int : 378 ms P-R-T Axes : 053 060 052 degrees QTc Int : 502 ms Sinus tachycardia. Otherwise normal ECG When compared with ECG of 20-FEB-2017 06:21, NE interval has decreased Confirmed by Saurav QUISPE, Uriel Hilliard ([id number]) on 02/24/2017 12:07:58 PM
--- NOTE | 2017-02-23 10:52 | Diag Imaging Result Document ---
PROCEDURE NAME: CHEST-PORTABLE - 02/23/2017 SINGLE FRONTAL RADIOGRAPH OF THE CHEST: COMPARISON: 02/20/2017. FINDINGS: Right chest port is in stable position. Inspiration is suboptimal. This is similar to the previous study. No new consolidations are identified. Cardiac silhouette is stable. IMPRESSION: Stable chest with no definite acute pathology.
[2017-02-23] MEDS: ROCEPHIN 1 GM/NS 1 GM/50 ML IVPB IV SCH (17:38)
--- NOTE | 2017-02-23 20:53 | CONSULTATION ---
DATE OF CONSULTATION: 02/23/2017 CONCLUSION: Patient is admitted to the hospital. He has an altered mental status. He also has been running a fever. The etiology for both of these findings is uncertain to me. Dr. Nowak has noted that the patient restarted Cymbalta and he wonders if possibly some of the patient's abnormalities could be due to the recent introduction of Cymbalta. RECOMMENDATIONS: I have ordered a CT scan of the abdomen and pelvis. DISCUSSION: The patient is unable to provide a history. The history was taken from his . According to her, the patient was doing well until approximately a week ago when he started running a fever, he became ataxic and he had an altered mental status. In the hospital he has fever spikes up to 102 degrees. His chest x-ray shows the presence of a right-sided Port-A-Cath but no infiltrates. Spinal fluid and blood cultures are negative. Creatinine is 1.1. GFR is greater than 60. Liver function studies are normal except for an AST of 46. A lumbar puncture was done. CSF had no white cells, protein was 82.9, glucose was 60, cryptococcal antigen was negative and as mentioned above the spinal fluid culture was negative. The [employer] meningitis panel for the spinal fluid also was completely negative. A CT scan and MRI of the head showed no acute disease. PAST MEDICAL HISTORY/REVIEW OF SYSTEMS: General: Prior to the present illness the patient, according to his , was doing quite well. Eyes and ears: He did not complain of loss of vision or hearing. Neck: No stiffness. Respiratory: No cough or shortness of breath. Cardiac: No chest pain or palpitations. Gastrointestinal: No nausea, vomiting, or diarrhea. Genitourinary: No dysuria or flank pain. Neurologic: Patient was alert. He was able to walk and talk. He did not have any seizures. Bones, joints, muscles: He was not complaining of any joint pain or muscle aches. Integument: No rash. The remainder of the patient's review of systems was completed and was negative. PREVIOUS HOSPITALIZATIONS AND OPERATIONS: He had a lymph node biopsy, pituitary surgery, laminectomy, total knee arthroplasty, appendectomy and cholecystectomy. He also had placement of a right-sided Port-A-Cath. MEDICAL DISEASES: Positive for non-Hodgkin's lymphoma and diabetes mellitus. INFECTIOUS DISEASE: Negative for pneumonia and UTI. FAMILY HISTORY: Positive for hypertension and cancer. SOCIAL HISTORY: The patient lives in the [facility]. He is . He does not have any pets at home. He is disabled. Patient does not smoke cigarettes, drink alcoholic beverages or abuse drugs. ALLERGIES: His chart lists no known drug allergies. HOME MEDICATIONS: Lasix, zinc, quetiapine, hydrocodone and gabapentin. PHYSICAL EXAMINATION: Vital Signs: Temperature is 100 degrees, pulse 102, respirations 18, blood pressure 132/47. General: This is an obese, middle-aged male. He is in no acute distress. Head, eyes, ears, nose, throat: No drainage noted from the nose or ears. Neck: No meningismus. Thorax: No increased AP diameter of the chest. Patient has a Port-A-Cath present. The site is not swollen or tender. Lungs: Clear to auscultation. Cardiovascular: Regular heart rate. Abdomen: Soft without masses or tenderness. Extremities: There is no erythema of the legs. There is a small amount of edema. Integument: No rash noted. Neurologic: The patient is somewhat obtunded. He did not respond to verbal stimuli. There was no tremor. Thank you for the consultation. cc: Marcin Garcia MD
[2017-02-24 03:56] LABS: ALLEN TEST YES; BE 1.1 mmoll (-3.0-3.0); BLOOD TYPE ARTERIAL; DRAW SITE R RADIAL; METHB 1.4 % (0.0-1.5); O2(CT) 11.9 mL/dL (15.0-23.0); PCO2(98.6) 36 mmHg (35-45); PO2(98.6) 60 mmHg (60-100); SAMPLE BLOOD; SAO2 96.1 % (95.0-100.0); THB 9.1 g/dL (11.5-17.4); pH(98.6) 7.45 (7.35-7.45)
[2017-02-24 03:57] LABS: MODALITY ROOM AIR
[2017-02-24 05:28] LABS: BASO% 0.3 % (0.0-0.8); EOS# 0.05 X1000 (0.0-0.7); EOS% 0.8 % (0.0-10.0); HEMATOCRIT 27.7 % (42.0-52.0); HEMOGLOBIN 8.7 g/dL (14.0-18.0); IMM GRAN# 0.02 X1000 (0.0-0.04); IMM GRAN% 0.3 % (0.0-0.5); LYMPH% 28.6 % (20.5-51.1); MANUAL DIFF NEEDED? YES; MCHC 31.4 g/dL (33-37); MCV 92.3 FL (81-99); MONO# 1.84 X1000 (0.11-0.59); MONO% 27.7 % (1.7-9.3); MPV 11.3 FL (7.4-10.4); NEUT% 42.3 % (42.2-75.2); PLT 60 X1000 (130-400)
[2017-02-24] MEDS: HUMULIN R SUBQ SCH ×4 (06:09→22:04)
[2017-02-24] MEDS: ATIVAN IV PRN (06:09)
--- NOTE | 2017-02-24 06:46 | PROGRESS NOTE ---
DATE: 02/24/2017 SUBJECTIVE: He had a pretty good night, slept most of the night and most of yesterday. OBJECTIVE: Still low grade temperature of 100.4 degrees, blood pressure 132/57, pulse 100 and respirations 16. Lungs are clear in all lung reis.Cardiovascular: Regular rhythm and rate without murmur or S3. Abdomen: Soft. Skin: Warm and dry. LABORATORY: White blood cell count 6650, hematocrit 27, and platelet count 60,000. Chemistry: Sodium 136, potassium 4.1, chloride 97, bicarb 21, BUN 16, and creatinine 1.1. Blood sugars 129, 140, 115 and . ASSESSMENT AND PLAN: 1. Altered mental status mainly lethargy and somnolence. He does not appear to have muscle rigidity or clonus, and appears to be waking up a little easier. The spinal tap results thus far unrevealing. Radiographically, there is no evidence of central neurologic pathology. Continue to use Ativan as needed but have not had to use it. Hopefully, he will wake up and improve. 2. Diffuse large B-cell lymphoma. 3. Thrombocytopenia. 4. He has been having low grade fever. I do not see source of infection. We have him on Rocephin at this point. Fluids going at normal saline 85 mL an hour. cc: Bijan Nowak MD
[2017-02-24 07:50] LABS: BANDS 12 % (0-1); EOS 2 % (1-10); LYMPHS 20 % (21-51); MONO 10 % (1-9)
--- NOTE | 2017-02-24 08:06 | PROGRESS NOTE ---
DATE: 02/24/2017 Mr. Thibodeaux is more calm, more attentive, awake and alert right now. He followed a few simple commands inconsistently, including holding up 2 fingers. He answered a few questions and I could understand some of his speech. I do not see any focal neurologic finding now. CSF continues negative. No new suggestion from neurologic standpoint today. cc: Yasemin Harris III, MD
[2017-02-24] MEDS: NS 1,000 ML IV SCH ×3 (09:51→22:05)
[2017-02-24] MEDS: ZINC SULFATE PO SCH (09:51)
[2017-02-24] MEDS: PRILOSEC PO SCH (09:51)
--- NOTE | 2017-02-24 12:27 | Diag Imaging Result Document ---
PROCEDURE NAME: ABDOMEN/PELVIS W/WO CONTRAST - 02/24/2017 CT ABDOMEN AND PELVIS WITHOUT AND WITH CONTRAST: Images are obtained prior to and following intravenous contrast administration. A dose-reduction protocol was used. COMPARISON: Compared with the without contrast exam of 01/27/2016. FINDINGS: The exam includes part of the thorax and shows adenopathy at the visualized bilateral axilla. There are calcified granulomas from old granulomatous disease at the right lung base. There is a nonspecific 1 cm noncalcified nodule at the right lower lung near the minor fissure which is stable. There is abdominal retroperitoneal adenopathy which is increased. There is substantial pelvic adenopathy, most prominent on the right, which is increased. There is substantial bilateral inguinal adenopathy, most prominent on the right, which has increased. A few of the inguinal lymph nodes are relatively low-density which may relate to some necrosis, although most of lymph nodes do not appear necrotic. The spleen appears mildly enlarged and increased compared to the previous exam. There are no acute abnormalities of the liver, adrenal glands, or pancreas identified. The gallbladder is surgically absent. There is cortical thinning/scarring at the right kidney similar to the previous exam. There is no solid-appearing renal mass or hydronephrosis identified. There are streak artifacts over the kidneys from the patient's arms which limit detail. There is no evidence of bowel obstruction. The appendix is not discretely visualized but there is no pericecal inflammation identified. There is no substantial bowel wall thickening identified. There is no free air or abscess identified. There is no substantial free fluid identified. IMPRESSION: 1. Bilateral axillary adenopathy. 2. Abdominal and pelvic retroperitoneal adenopathy which has increased. Substantial bilateral inguinal adenopathy which has increased. Lymphoma is a consideration. 3. Mild splenomegaly. 4. No bowel obstruction. No abscess. No free air. [facility]
[2017-02-24] MEDS: ROCEPHIN 1 GM/NS 1 GM/50 ML IVPB IV SCH (17:35)
[2017-02-25] MEDS: ATIVAN IV PRN ×2 (02:31→11:09)
[2017-02-25 05:14] LABS: BASO% 0.3 % (0.0-0.8); EOS# 0.04 X1000 (0.0-0.7); EOS% 0.6 % (0.0-10.0); HEMATOCRIT 27.8 % (42.0-52.0); HEMOGLOBIN 8.8 g/dL (14.0-18.0); IMM GRAN# 0.02 X1000 (0.0-0.04); IMM GRAN% 0.3 % (0.0-0.5); LYMPH# 1.74 X1000 (1.2-3.4); LYMPH% 27.2 % (20.5-51.1); MANUAL DIFF NEEDED? NO; MCHC 31.7 g/dL (33-37); MCV 91.7 FL (81-99); MONO# 1.81 X1000 (0.11-0.59); MONO% 28.3 % (1.7-9.3); NEUT% 43.3 % (42.2-75.2); PLT 60 X1000 (130-400); RBC 3.03 XMIL (4.7-6.1)
[2017-02-25] MEDS: HUMULIN R SUBQ SCH ×4 (06:52→21:12)
--- NOTE | 2017-02-25 08:15 | PROGRESS NOTE ---
DATE: 02/25/2017 PRESENT ILLNESS: The patient has been having fever. He also has an altered mental status. The etiology of these findings is uncertain to me. MEDICATIONS: The patient is receiving Rocephin. PHYSICAL EXAMINATION: Vital Signs: Temperature is 98.5 degrees, pulse 101, respirations 20, blood pressure 129/68. General: This is a somewhat ill-appearing middle-aged male. He is in no acute distress at this time. Lungs: Clear to auscultation. Cardiovascular: Regular heart rate. Abdomen: Soft and nontender. Neurologic: The patient seems more alert today. He did move his extremities to request. There was no tremor. LABORATORY AND X-RAY: CBC for today shows a white count of 6400, hemoglobin 8.8, and platelet count 60,000. CSF PCR for herpes simplex virus, Cryptococcus antigen, and the Diatherix meningitis and encephalitis panels all are negative. CT scan of the abdomen and pelvis shows adenopathy. The patient's blood culture was negative, and the CSF PCR for HSV was negative as well. The CSF cultures also are negative. ASSESSMENT AND PLAN: The patient had fever and has an altered mental status, which appears to be improving. The etiology is uncertain to me. I do not think he needs the Rocephin that was started earlier, so I have discontinued it. The patient's main comorbidity is non-Hodgkin's lymphoma. Also, he was recently started on a new medication, and possibly his illness is a reaction to that medication. As mentioned above, I do not think the patient has an infection. I have discontinued Rocephin. I am available to see the patient on an as needed basis. cc: Marcin Garcia MD
--- NOTE | 2017-02-25 08:37 | PROGRESS NOTE ---
DATE: 02/25/2017 Mr. Thibodeaux is more alert today, more attentive, following simple commands more quickly and more consistently. Speech remains dysarthric. He did not report any specific complaint to me this morning. I do not have any new thought or new suggestion this morning from a neurologic standpoint. cc: Yasemin Harris III, MD
[2017-02-25] MEDS: NS 1,000 ML IV SCH ×2 (09:09→17:54)
[2017-02-25] MEDS: ZINC SULFATE PO SCH (09:10)
[2017-02-25] MEDS: PRILOSEC PO SCH (09:10)
[2017-02-25 09:28] LABS: BASO% 0.5 % (0.0-0.8); EOS# 0.04 X1000 (0.0-0.7); EOS% 0.6 % (0.0-10.0); HEMATOCRIT 28.1 % (42.0-52.0); LYMPH# 1.32 X1000 (1.2-3.4); LYMPH% 20.7 % (20.5-51.1); MANUAL DIFF NEEDED? YES; MCH 29.6 PG (27-31); MCV 92.4 FL (81-99); MONO# 1.97 X1000 (0.11-0.59); MONO% 30.9 % (1.7-9.3); MPV 12.1 FL (7.4-10.4); NEUT% 47.3 % (42.2-75.2); PLT 61 X1000 (130-400); RBC 3.04 XMIL (4.7-6.1)
[2017-02-25 09:41] LABS: BANDS 2 % (0-1); LYMPHS 18 % (21-51); MONO 22 % (1-9)
[2017-02-25 09:50] LABS: AGAP 17; BUN 11 mg/dL (8-22); CHLORIDE 100 mmol/L (98-107); COSMO 275; POTASSIUM 3.8 mmol/L (3.5-5.1); SODIUM 138 mmol/L (136-145); TCO2 21 mmol/L (25-35)
--- NOTE | 2017-02-25 14:03 | PROGRESS NOTE ---
DATE: 02/25/2017 SUBJECTIVE: It looks like this patient is about the same compared with yesterday. He is still lethargic and his answers are slow, he knows his name but he is not answering all my questions. This patient tried to get up off the bed and he fell. He has a small lesion in his forehead. I will get a CT scan of the head to rule out any bleed. I had a conversation with Dr. Crockett. This patient has a CLL/diffuse large B-cell lymphoma and it looks like is nearing end stage. Probably this patient will need hospice. OBJECTIVE: Vital Signs: Temperature 97.9 degrees, pulse 105, respiratory rate 18, blood pressure 120/79, O2 saturation 100% on 2 L of nasal cannula. HEENT: Head normocephalic. Mild lesion at the level of the forehead for recent fall. PERRLA. Neck: Supple. No JVD. No masses. Central trachea. Chest: Clear to auscultation. No wheezing. No rales. Axillary lymphadenopathy and inguinal lymphadenopathy. Abdomen: Soft, nontender, nondistended. No hepatosplenomegaly. Extremities: No edema. No clubbing. No cyanosis. Neurological: The patient is alert. He is oriented x1 and on and off x2, his answers are slow. He does follow command but it takes time to do that. Apparently no big changes compared with yesterday. LABORATORY: WBC 6.3, hemoglobin 9, hematocrit. 28.1, platelets 61,000. Sodium 138, potassium 3.8, chloride 100, bicarbonate 21, BUN 11, creatinine 0.8, glucose 99, calcium 9. ASSESSMENT AND PLAN: 1. Altered mental status. This patient is lethargic/somnolent. Apparently compared with yesterday he is about the same. Lumbar puncture and x-rays without any evidence of infection or neurological problem. Will continue to monitor. 2. Chronic lymphocytic leukemia/diffuse large B-cell lymphoma. It looks like this is close to be end-stage. This patient is having thrombocytopenia as well. Probably this patient will need hospice. 3. Thrombocytopenia. Aware. Will continue to monitor. 4. Fever without any evident source of infection. Infectious Disease Department is following this patient. We will continue to monitor. CRITICAL CARE TIME: 30 minutes. cc: Sky Neal MD
--- NOTE | 2017-02-25 14:23 | Diag Imaging Result Document ---
PROCEDURE NAME: HEAD W/O CONTRAST - 02/25/2017 CT HEAD WITHOUT CONTRAST: COMPARISON: 02/19/2017. FINDINGS: There is no discrete intracranial mass, mass effect, or intracranial hemorrhage. There is no evidence of hydrocephalus. There is no evidence of acute infarct given the limited sensitivity of CT versus MRI. The surrounding soft tissues and bony structures are essentially unremarkable. IMPRESSION: No evidence of acute intracranial pathology.
[2017-02-25] MEDS: LOVENOX SUBQ SCH (16:35)
[2017-02-25 17:43] LABS: URINE CULTURE NEEDED? NO; URINE MICRO REVIEW NEEDED? NO; URINE SOURCE CATH
[2017-02-25 17:47] LABS: BILIRUBIN URINE NEGATIVE (NEGATIVE); BLOOD URINE NEGATIVE (NEGATIVE); COLOR YELLOW; GLUCOSE URINE NEGATIVE (NEGATIVE); LEUKOCYTES URINE NEGATIVE (NEGATIVE); NITRITE URINE NEGATIVE (NEGATIVE); PH URINE 5.5; PROTEIN URINE 30 mg/dL (NEGATIVE); SP GRAVITY URINE 1.023; TURBIDITY URINE CLEAR (CLEAR); UR EPITHELIAL CELLS <10 /HPF (<10); URINE BACTERIA NEGATIVE /HPF; URINE RBC <10 /HPF (<10); URINE WBC <10 /HPF (<10); UROBILINOGEN URINE NORMAL (NORMAL)
[2017-02-26] MEDS: NS 1,000 ML IV SCH ×3 (04:53→16:39)
[2017-02-26 05:36] LABS: BASO% 0.3 % (0.0-0.8); EOS# 0.02 X1000 (0.0-0.7); EOS% 0.3 % (0.0-10.0); HEMATOCRIT 26.5 % (42.0-52.0); HEMOGLOBIN 8.6 g/dL (14.0-18.0); LYMPH# 1.84 X1000 (1.2-3.4); LYMPH% 27.3 % (20.5-51.1); MANUAL DIFF NEEDED? YES; MCH 29.7 PG (27-31); MCHC 32.5 g/dL (33-37); MCV 91.4 FL (81-99); MONO# 1.96 X1000 (0.11-0.59); NEUT% 43.1 % (42.2-75.2); PLT 60 X1000 (130-400)
[2017-02-26 05:43] LABS: BANDS 2 % (0-1); LYMPHS 22 % (21-51); MONO 18 % (1-9)
[2017-02-26] MEDS: HUMULIN R SUBQ SCH ×4 (06:09→20:50)
[2017-02-26 07:50] LABS: AGAP 16; BUN 11 mg/dL (8-22); CALCIUM 8.8 mg/dL (8.8-10.2); CHLORIDE 100 mmol/L (98-107); COSMO 277; POTASSIUM 3.7 mmol/L (3.5-5.1); SODIUM 138 mmol/L (136-145); TCO2 22 mmol/L (25-35)
[2017-02-26] MEDS: PRILOSEC PO SCH (08:36)
[2017-02-26] MEDS: ZINC SULFATE PO SCH (08:36)
[2017-02-26] MEDS: ATIVAN IV PRN ×2 (09:20→23:16)
--- NOTE | 2017-02-26 12:14 | PROGRESS NOTE ---
DATE: 02/26/2017 SUBJECTIVE: This patient looks a little bit better today. He is answering some of my questions, but he is a little bit lethargic and his answers are slow according to family members at the bedside, his son and one sister. I explained to them the whole situation. I called Dr. Crockett to see what is the next step on this patient, and he states that for now we cannot provide any kind of treatment and we need to consider hospice. I talked to the family about this conversation. Also I called by phone to his ; she seems to understand the whole situation as well. I explained to her in detail what is the possible next step in management. Dr. Crockett will be here tomorrow between 9 a.m. and 11 a.m. He will talk to the family; the family has been notified. OBJECTIVE: Vital Signs: Temperature 99.8 degrees, pulse 110, respiratory rate 16, blood pressure 125/87, oxygen saturation 99 on room air. HEENT: Head normocephalic. There is a mild lesion at the level of the forehead for a recent fall without complications. PERRLA. Neck: Supple. No JVD. No masses. Central trachea. Chest: Clear to auscultation. No wheezing. No rales. Lymph Nodes: No axillary lymphadenopathy and inguinal lymphadenopathy. Abdomen: Soft, nontender, nondistended. No hepatosplenomegaly. Extremities: No edema. No clubbing. No cyanosis. Neurological examination: The patient is alert. He is oriented x1. He is able to recognize people, his son. His answers are slow. He does follow commands, but it takes time to do that. Apparently, for now no big changes compared with yesterday. LABORATORY: WBC 6.7, hemoglobin 8.6, hematocrit 26.5, platelets 60. Sodium 138, potassium 3.7, chloride 100, bicarbonate 22, BUN 11, creatinine 0.9, glucose 126. ASSESSMENT AND PLAN: 1. Altered mental status. This patient is still lethargic/somnolent. Compared with yesterday, it is a little bit better. Lumbar punctures, lab work and x-rays without any evidence of infection. Infectious Disease Department is following this patient. 2. Chronic lymphocytic leukemia/diffuse large B-cell lymphoma. It looks like this is close to be end-stage and/or disease is end-stage already. This patient has also thrombocytopenia. I had a conversation with Dr. Crockett, and probably this patient will need hospice. 3. Thrombocytopenia, aware. Continue to monitor. 4. Fever without any evident source of infection. No fever recently. Infectious Disease Department is following this patient. CRITICAL CARE TIME: 35 minutes. cc: Sky Neal MD
[2017-02-26] MEDS: LOVENOX SUBQ SCH (12:50)
[2017-02-27] MEDS: NS 1,000 ML IV SCH ×2 (04:31→20:53)
[2017-02-27 06:02] LABS: AGAP 12; BASO% 0.5 % (0.0-0.8); BUN 10 mg/dL (8-22); CALCIUM 9.1 mg/dL (8.8-10.2); CHLORIDE 103 mmol/L (98-107); COSMO 276; EOS# 0.06 X1000 (0.0-0.7); HEMATOCRIT 25.4 % (42.0-52.0); HEMOGLOBIN 8.1 g/dL (14.0-18.0); LYMPH# 1.86 X1000 (1.2-3.4); LYMPH% 30.4 % (20.5-51.1); MANUAL DIFF NEEDED? YES; MCH 28.9 PG (27-31); MCHC 31.9 g/dL (33-37); MCV 90.7 FL (81-99); MONO# 1.74 X1000 (0.11-0.59); MONO% 28.5 % (1.7-9.3); MPV 13.1 FL (7.4-10.4); NEUT% 39.6 % (42.2-75.2); PLT 70 X1000 (130-400); POTASSIUM 3.5 mmol/L (3.5-5.1); SODIUM 138 mmol/L (136-145); TCO2 23 mmol/L (25-35)
[2017-02-27] MEDS: HUMULIN R SUBQ SCH ×3 (06:13→23:10)
[2017-02-27 07:49] LABS: BANDS 1 % (0-1); LYMPHS 24 % (21-51); MONO 18 % (1-9)
--- NOTE | 2017-02-27 09:50 | PROGRESS NOTE ---
DATE: 02/27/2017 SUBJECTIVE: This patient is about the same compared with yesterday. His answers are slow and he looks lethargic. He is able to open his eyes by himself. Family members at the bedside. Today, they will have a conversation with Dr. Crockett. Hopefully with this, we can have a plan for him. Neurologically, this patient is not having big changes. OBJECTIVE: Vital Signs: Temperature 99.1 degrees, pulse 81, respiratory rate 16, blood pressure 111/72, oxygen saturation 98 on nasal cannula. HEENT: Head normocephalic. No trauma. PERRLA. Neck: Supple. No JVD. No masses. Central trachea. Chest: Clear to auscultation. No wheezing. No rales. Cardiovascular: RRR. No murmurs. Abdomen: Soft, nontender, nondistended. Extremities: No edema. No clubbing. No cyanosis. Neurological Examination: The patient is resting in bed comfortably. He opening his eyes spontaneously. He has no big changes compared with yesterday. Slow response, slow answers. Laboratory: WBC 6, hemoglobin 8.1, hematocrit 25.4, platelets 70,000. Sodium 138, potassium 3.5, chloride 103, bicarbonate 23, BUN 10, creatinine 0.9, glucose 126, calcium 9.1. ASSESSMENT AND PLAN: 1. Altered mental status. This patient is still lethargic, somnolent compared with yesterday. No big changes. Lumbar puncture, lab work, x-rays without any evidence of infection. Infectious disease department and neurology department are following this patient. 2. Chronic lymphocytic leukemia/diffused large B-cell lymphoma. The family will have a conversation today with Dr. Crockett. I do think that this patient needs hospice. It looks like this is at the end-stage of his disease. 3. Thrombocytopenia. Aware. Continue to monitor. 4. Apparently, this patient had fever at the beginning without any evident source of infection. Infectious disease department is following this patient. CRITICAL CARE TIME: Thirty minutes. cc: Sky Neal MD
--- NOTE | 2017-02-27 12:53 | PROGRESS NOTE ---
DATE: 02/27/2017 SUBJECTIVE: Patient is lying in bed in deep sleep. Several family members are in the room. Nurse reports that he had minimal confusion at night. Family reports that he is much more alert and awake and has had normal conversations with them. PHYSICAL EXAMINATION: Vital signs: T-max 100.8 degrees, T current 99.1, pulse 81, blood pressure 111/72. Cardiac Exam: Regular rate and rhythm. Normal S1, S2. Chest: Clear to auscultation. Abdomen: Soft, nontender, without hepatosplenomegaly or masses. Lymph nodes in the groin and axilla are slowly increasing. LABS: White count 6.1, hemoglobin 8.1, hematocrit 25, platelets 70,000. BUN 10, creatinine 0.9. ASSESSMENT AND PLAN: 1. Non-Hodgkin's lymphoma, chronic lymphocytic leukemia/diffuse large B-cell lymphoma, refractory: His last cycle of Treanda and rituximab was on 01/24/2017. This was his 1st cycle. I had a lengthy discussion with the family members today regarding his disease status prognosis and further options. He has very limited options going forward. I discussed hospice but the family members want to pursue further therapy. Previously he has seen [facility] and he is not a candidate for stem cell transplantation and there were no clinical trials offered. As soon as he gets better they would like him to get back on Treanda and rituximab. He may have another 1 or 2 lines of therapy. However, I doubt that this therapy is going to offer any significant long-term control of disease. We may be able to stabilize his disease and buy him some more time. I discussed hospice which they have declined. They are more interested in home health care at this time. 2. Change in mental status: Further management per PMD. 3. Physical therapy: Get Physical therapy involved. Get him out of bed q.i.d. Get melatonin started. cc: Deepak Crockett MD
[2017-02-27] MEDS: LOVENOX SUBQ SCH (15:14)
[2017-02-27] MEDS: ZINC SULFATE PO SCH (15:14)
[2017-02-27] MEDS: PRILOSEC PO SCH (15:14)
[2017-02-27] MEDS: TYLENOL PO PRN (20:53)
[2017-02-27] MEDS: MELATONIN PO SCH (20:53)
[2017-02-27] MEDS ORDERED: MELATONIN PO SCH (21:00)
[2017-02-27] MEDS: ATIVAN IV PRN (21:56)
[2017-02-28] MEDS: HUMULIN R SUBQ SCH ×5 (06:03→20:38)
[2017-02-28 06:43] LABS: BASO% 0.3 % (0.0-0.8); EOS# 0.05 X1000 (0.0-0.7); EOS% 0.8 % (0.0-10.0); HEMATOCRIT 25.9 % (42.0-52.0); HEMOGLOBIN 8.1 g/dL (14.0-18.0); LYMPH# 1.49 X1000 (1.2-3.4); LYMPH% 25.2 % (20.5-51.1); MANUAL DIFF NEEDED? YES; MCH 28.6 PG (27-31); MCHC 31.3 g/dL (33-37); MCV 91.5 FL (81-99); MONO# 1.88 X1000 (0.11-0.59); MONO% 31.8 % (1.7-9.3); NEUT% 41.9 % (42.2-75.2); PLT 65 X1000 (130-400); RBC 2.83 XMIL (4.7-6.1)
[2017-02-28 06:44] LABS: AGAP 12; BUN 9 mg/dL (8-22); CALCIUM 9.2 mg/dL (8.8-10.2); CHLORIDE 102 mmol/L (98-107); COSMO 274; POTASSIUM 3.5 mmol/L (3.5-5.1); SODIUM 137 mmol/L (136-145); TCO2 23 mmol/L (25-35)
[2017-02-28 07:48] LABS: EOS 1 % (1-10); LYMPHS 31 % (21-51); MONO 16 % (1-9)
[2017-02-28] MEDS: NS 1,000 ML IV SCH ×2 (08:54→20:40)
[2017-02-28] MEDS: ZINC SULFATE PO SCH (08:54)
[2017-02-28] MEDS: PRILOSEC PO SCH (08:54)
--- NOTE | 2017-02-28 11:04 | PROGRESS NOTE ---
DATE: 02/28/2017 SUBJECTIVE: The patient's sisters are in the room with him, and they state that he had a good weekend. He was talkative. Today he is sitting up in the chair and looks better. Still not back to baseline, but there has been improvement. His oncologist has seen him and discussed Hospice care, but the family has declined that at this time. OBJECTIVE: Vital signs: Temperature is 100.9 this morning, pulse 101, respiratory rate 18, blood pressure 139/52, O2 saturation is 97% on room air. General: The patient is sitting up in a chair this morning, talking some to myself and to his sister, drinking from a cup with help. Cardiovascular: Mildly tachycardic, regular rhythm. No murmurs appreciated. Lungs: Clear to auscultation anteriorly. Neurologic: Mental status: Awake. Oriented to his name. He is not able to tell me who his sister is but instead says he knows her, he just does not feel like talking. He is not oriented to place or time. His attention and concentration are reduced. He is able to give me a thumbs up on command, but further commands are inconsistently followed. Cranial nerves: PERRL. Pupils are 3 mm OU. Extraocular movements were intact. No nystagmus. Face is symmetrical with equal activation. He does not participate further. Motor: Normal bulk and tone. No abnormal movements. His strength is symmetric in all extremities. He is at least 4/5 in his upper extremities and at least against gravity in his lower extremities, though further testing is limited due to cooperation. Reflexes are reduced throughout and symmetric. Equivocal Babinski on the right, flexor on the left. No clonus. Sensory: He responds to painful sensation on all extremities. Unable to test coordination and gait due to his mental status. DIAGNOSTIC DATA: His CSF Gram stain and culture were negative. CSF glucose was 60. Red cells were initially elevated that cleared. Total protein 82.9. VDRL, cryptococcus, herpes and meningitis encephalitis PCR were all negative in the CSF. His CSF cytology and flow cytometry are pending. He has had negative blood cultures. No evidence of infection in the urine. Infectious Disease has seen him and discontinued ceftriaxone, does not believe there is any infection. White cells are 5.91, hemoglobin 8, hematocrit 26, platelets 65. Sodium is 137 , potassium 3.5, CO2 is 23, BUN is 9, creatinine 0.9, glucose 125. AST is 46, ALT is 19. Calcium, magnesium and phosphorus all within normal limits. Alkaline phosphatase is 107. EEG on 02/21/2017 with moderate generalized background slowing indicative of a moderate encephalopathy. No epileptiform abnormalities or seizures were noted. MRI of the brain with and without contrast on 02/21/2017 showed mild T2 flare signal hyperintensity in the periventricular and subcortical white matter suggesting mild microangiopathy most likely. No evidence of acute intracranial pathology. Head CT on 2016 with no evidence of acute intracranial pathology. CT of the abdomen and pelvis on 02/24/2017 showed bilateral axillary adenopathy, abdominal and pelvic retroperitoneal adenopathy which has increased, substantial bilateral inguinal adenopathy which has increased, mild splenomegaly. ASSESSMENT AND PLAN: This is a 61-year-old right-handed male with history of progressive CLL/diffuse large B cell lymphoma, history of possible remote seizure 3 weeks following a head injury 10 or 15 years ago, presenting with progressively worsening altered mental status and dizziness with gait instability over the week prior to admission. He has had fevers off and on during his hospitalization. 1. Encephalopathy. It is unclear what has caused his confusion to develop, though it is definitely improving since I last saw him last week. CSF has been negative. CSF cytology and flow cytometry are pending. EEG only showed a moderate encephalopathy but no evidence for seizures. Imaging of the brain has been negative for acute findings. The admitting physician was treating him for possible serotonin syndrome and holding home medications. His oncology physician and other physicians caring for him in the hospital have felt that this may be just progression of his cancer and have discussed Hospice with the family, although the family is not interested in Hospice at this time. I will defer that conversation to the primary team. Other than withholding sedating medications, there are no new recommendations from a neurologic standpoint at this time. cc: Ania Coffman MD MTDD
--- NOTE | 2017-02-28 11:18 | PROGRESS NOTE ---
DATE: 02/28/2017 SUBJECTIVE: This patient looks about the same compared with yesterday. Yesterday the family had a conversation with Dr. Crockett, who recommended hospice but the family refused it; they want to continue treatment for this patient. So, he will follow up as an outpatient with Dr. Crockett as soon as he is ready to be discharged. Today this patient has a fever of 100.9, so I asked for blood cultures and urine culture. Neurology department is on board and we do not have a specific cause for his mental status changes. As per the family, this patient in the morning was answering some questions and he was more alert but at the moment of my evaluation, he was somnolent and not answering my questions. The plan is to follow up with the urine and blood cultures. At the moment of admission we were thinking about the possibility of serotonin syndrome. We will continue to monitor. OBJECTIVE: Vital Signs: Temperature 100.9 degrees, pulse 101, respiratory rate 18, blood pressure 139/52, oxygen saturation 97% on room air. HEENT: Head normocephalic. No trauma. PERRLA. Neck: Supple. No JVD. No masses. Central trachea. Chest: Clear to auscultation. No wheezing. No rales. Cardiovascular: RRR. No murmurs. No gallops. No rubs. Abdomen: Soft, nontender, nondistended. No hepatosplenomegaly. Extremities: No edema. No clubbing. No cyanosis. Neurological: The patient is resting comfortably. He is opening his eyes spontaneously. No big changes compared with yesterday. He is still somnolent and not answering my questions. LABORATORY: WBC 5.9, hemoglobin 8.1, hematocrit 25.9, platelets 65,000. Sodium 137, potassium 3.5, chloride 102, bicarbonate 23, BUN 9, creatinine 0.9, glucose 125, calcium 9.2. ASSESSMENT AND PLAN: 1. Altered mental status. This patient is still somnolent/lethargic. Compared with yesterday, no big changes. Lumbar puncture, lab work, and x-ray without any evidence of infection. Infectious disease department and neurology department are following this patient as well. 2. Chronic lymphocytic leukemia/diffuse large B-cell lymphoma. Family had a conversation with Dr. Crockett who recommended hospice for this patient but they refused hospice. They want a continued treatment, so he will be following this patient up as an outpatient. 3. Thrombocytopenia, aware. Continue to monitor. 4. Possibility of serotonin syndrome, aware. 5. Fever. I asked for urine culture and blood cultures. Also will follow up with an x-ray. CRITICAL CARE TIME: 30 minutes. cc: Sky Neal MD
--- NOTE | 2017-02-28 11:29 | Diag Imaging Result Document ---
PROCEDURE NAME: CHEST-PORTABLE - 02/28/2017 PORTABLE CHEST: COMPARISON: 02/23/2017. FINDINGS: Stable right chest port in good position. Stable critically low lung volumes with hazy bibasilar atelectasis. No new infiltrates. Stable mild cardiomegaly. IMPRESSION: Critically low lung volumes. No significant change from prior.
[2017-02-28] MEDS: LOVENOX SUBQ SCH (11:35)
[2017-02-28] MEDS: MELATONIN PO SCH (20:39)
[2017-02-28] MEDS: TYLENOL PO PRN (21:59)
[2017-03-01 05:24] LABS: BASO% 0.4 % (0.0-0.8); EOS# 0.06 X1000 (0.0-0.7); EOS% 1.2 % (0.0-10.0); HEMOGLOBIN 7.5 g/dL (14.0-18.0); LYMPH# 1.35 X1000 (1.2-3.4); LYMPH% 28.1 % (20.5-51.1); MANUAL DIFF NEEDED? YES; MCH 28.6 PG (27-31); MCHC 31.3 g/dL (33-37); MCV 91.6 FL (81-99); MONO# 1.45 X1000 (0.11-0.59); MONO% 30.1 % (1.7-9.3); MPV 11.9 FL (7.4-10.4); NEUT% 40.2 % (42.2-75.2); PLT 55 X1000 (130-400); RBC 2.62 XMIL (4.7-6.1)
[2017-03-01 05:37] LABS: AGAP 12; BUN 8 mg/dL (8-22); CALCIUM 9.2 mg/dL (8.8-10.2); CHLORIDE 100 mmol/L (98-107); COSMO 269; POTASSIUM 3.4 mmol/L (3.5-5.1); SODIUM 135 mmol/L (136-145); TCO2 23 mmol/L (25-35)
[2017-03-01 05:44] LABS: BANDS 4 % (0-1); EOS 2 % (1-10); LYMPHS 32 % (21-51); MONO 10 % (1-9)
[2017-03-01] MEDS: HUMULIN R SUBQ SCH ×4 (05:59→20:55)
[2017-03-01] MEDS: PRILOSEC PO SCH (09:19)
[2017-03-01] MEDS: ZINC SULFATE PO SCH (09:19)
[2017-03-01] MEDS: NS 1,000 ML IV SCH ×2 (09:20→20:52)
[2017-03-01] MEDS: ATIVAN IV PRN (11:25)
[2017-03-01] MEDS ORDERED: ATIVAN IV PRN (11:36)
[2017-03-01] MEDS ORDERED: GEODON IM PRN (11:37)
[2017-03-01] MEDS ORDERED: STERILE WATER INJ. INJ PRN (11:37)
[2017-03-01] MEDS: LOVENOX SUBQ SCH (11:43)
--- NOTE | 2017-03-01 12:11 | PROGRESS NOTE ---
DATE: 03/01/2017 SUBJECTIVE: The patient at the time of my examination was really agitated and wants to get up from the bed. Patient needed to be given Ativan IV to calm him down. Otherwise, no acute issues overnight. OBJECTIVE: Vital Signs: Temperature 99.4 degrees, heart rate 101, respiratory rate 20, blood pressure 116/62, O2 saturation 96% on room air. General: This is a chronically ill-looking, 61- year-old male, lying in bed in no acute distress. HEENT: Head is normocephalic and atraumatic. Anicteric sclerae and pale conjunctivae. Mucous membranes moist. Neck: Supple. No JVD noted. No carotid bruits. No lymphadenopathy. No thyromegaly. Cardiovascular: S1 and S2 heard. No murmurs, gallops, or rubs. Regular rate and rhythm. Respiratory: Clear bilaterally to auscultation. No work of breathing or using accessory muscles. Abdomen: Soft, nontender to palpation. Bowel sounds present. No organomegaly. Extremities: No clubbing or cyanosis. Mild edema in both lower extremities. Neurological: Patient is now sleepy. Moves all 4 extremities. Of course, he is not oriented to time or person. LABORATORY DATA: White cell count 4.81, hemoglobin 7.5, hematocrit 24.0, and platelets 55,000. BMP unremarkable except potassium 3.4. ASSESSMENT ABNORMALITIES: 1. Altered mental status. Neurology and Infectious Disease have been following this patient and all workup, including lumbar puncture, laboratories, and x-ray did not show any evidence of infection. The patient is still spiking fever. Last temperature was 104 degrees yesterday night and I think this fever is coming from the lymphoma, leukemia. Two sets of blood culture have been ordered and have been negative so far. One had been drawn yesterday and they are still pending, but, as I mentioned before, I think this fever is coming from the cancer. 2. Chronic lymphocytic leukemia/diffuse large B-cell lymphoma. Dr. Crockett has talked with this patient and his family about next steps in the management of this patient. Unfortunately, he is not a good candidate for continuing chemotherapy. Apparently, the patient's family has refused hospice. They still prefer to continue with active treatment. Dr. Crockett apparently will try to give more chemotherapy, although he thinks that this is not going to help long- term. We are going to talk to him to establish the next step in the management of this patient. 3. Thrombocytopenia related to the cancer. 4. Fever. As we mentioned before, this fever is most probably not of infectious source because urine culture and blood culture have been negative so far, twice cc: Cirilo De Santiago MD
[2017-03-01] MEDS: NEURONTIN PO SCH ×2 (13:30→17:58)
--- NOTE | 2017-03-01 13:37 | PROGRESS NOTE ---
DATE: 03/01/2017 SUBJECTIVE: The patient is alone. Apparently he was agitated, trying to get out of bed late this morning and received some Ativan. He has been running fevers off and on. OBJECTIVE: Vital signs reviewed. Intermittent fevers overnight. General: Patient is supine in bed asleep. Occasional snores. Abdomen: Is soft, nontender. Mental status: He is asleep when I walk in the room. When I call his name he lifts his eyebrows but does not open his eyes. When I tried to lift his eyelids he actively resists then he opens his eyes and looks over toward me and questions what I am doing. During the remainder of the exam he is not participating but he does talk more and he is trying to get me to leave him alone. Cranial nerves: Pupils are equal, round, reactive to light. A 3 mm OU. No nystagmus is noted. Conjugate gaze. Face is symmetrical with equal activation. Motor exam: Normal bulk and tone. He is at least against gravity but not further cooperating. Reflexes are reduced throughout. Absent in the ankles. His plantar response is flexor on the left and while previously equivocal Babinski on the right appears to be more outgoing today. Sensory: He responds to painful sensation in all extremities. DIAGNOSTIC DATA: His CSF cytology was done as a thin prep using 1 mL of CSF. It was read as negative and a few scattered lymphocytes were seen. Flow cytometry is still pending. ASSESSMENT AND PLAN: This is a 61-year-old right-handed male with CLL/diffuse large B cell lymphoma, possible remote seizure 3 weeks following a head injury presenting with progressively worsening altered mental status and dizziness with gait instability over the week prior to admission. He has continued to have fevers off and on during his hospitalization. Encephalopathy. Still waiting on his CSF flow cytometry. His cytology was reported as a negative study using thin prep of 1 mL CSF. Scattered lymphocytes were noted. I spoke with Dr. Crockett today and we discussed his case. He has called the lab to look for the flow cytometry results as this possibly should have been reported already. The lab is looking for this result. His testing has otherwise not given us any definitive cause for his encephalopathy. He has continued to show improvement since he was initially here but still he is not at baseline. The team is thinking now that his fevers are secondary to his cancer as no infectious source has been identified. He got Ativan today for agitation. Again we are awaiting the flow cytometry results. With the aggressive nature of his cancer, it is possible that this could be because of his decline. Other than withholding the sedating medications as able there are no new recommendations from a neurologic standpoint at this time. cc: Ania Coffman MD MTDD
[2017-03-01] MEDS: GEODON ONE ×2 (13:40→18:32)
[2017-03-01] MEDS: TYLENOL PO PRN (15:55)
[2017-03-01] MEDS: TORADOL IV SCH ×2 (16:45→21:47)
[2017-03-01] MEDS: MELATONIN PO SCH (20:54)
[2017-03-01] MEDS ORDERED: SEROQUEL PO SCH (21:00)
[2017-03-01] MEDS: OFIRMEV 1000 MG/ISOTONIC SOLN 1,000 MG/100 ML BOTTLE IV SCH (21:47)
[2017-03-02] MEDS: OFIRMEV 1000 MG/ISOTONIC SOLN 1,000 MG/100 ML BOTTLE IV SCH ×4 (03:28→21:21)
[2017-03-02] MEDS: TORADOL IV SCH ×4 (03:28→21:21)
[2017-03-02 05:21] LABS: BASO% 0.7 % (0.0-0.8); EOS# 0.07 X1000 (0.0-0.7); EOS% 1.6 % (0.0-10.0); HEMATOCRIT 23.4 % (42.0-52.0); HEMOGLOBIN 7.1 g/dL (14.0-18.0); IMM GRAN# 0.03 X1000 (0.0-0.04); IMM GRAN% 0.7 % (0.0-0.5); LYMPH# 1.14 X1000 (1.2-3.4); LYMPH% 26.8 % (20.5-51.1); MANUAL DIFF NEEDED? YES; MCH 28.3 PG (27-31); MCHC 30.3 g/dL (33-37); MCV 93.2 FL (81-99); MONO% 25.9 % (1.7-9.3); NEUT% 44.3 % (42.2-75.2); PLT 44 X1000 (130-400); RBC 2.51 XMIL (4.7-6.1)
[2017-03-02] MEDS: HUMULIN R SUBQ SCH ×4 (06:08→21:22)
[2017-03-02 07:46] LABS: BANDS 8 % (0-1); HYPOCHROM 2+; LYMPHS 20 % (21-51); MONO 18 % (1-9)
[2017-03-02] MEDS: NEURONTIN PO SCH ×3 (09:44→16:09)
[2017-03-02] MEDS: NS 1,000 ML IV SCH ×2 (09:45→21:23)
[2017-03-02] MEDS: ZINC SULFATE PO SCH (09:45)
[2017-03-02] MEDS: PRILOSEC PO SCH (09:45)
[2017-03-02] MEDS: LOVENOX SUBQ SCH (11:12)
--- NOTE | 2017-03-02 15:11 | PROGRESS NOTE ---
DATE: 03/02/2017 SUBJECTIVE: The patient definitely is more alert and awake today. No acute distress as per nursing staff overnight. OBJECTIVE: Vital Signs: Temperature 98.3 degrees, heart rate 80, respiratory rate 16, blood pressure 114/58, O2 saturation 100% on room air. Temperature maximum yesterday was 102.1. General Examination: This is a chronically ill-looking, 61-year-old male, lying in bed, in no acute distress. HEENT: Head is normocephalic, atraumatic. Anicteric sclerae. Pale conjunctivae. Mucous membranes moist. Neck: Supple. No JVD noted. No carotid bruits. No lymphadenopathy. No thyromegaly. Cardiovascular: S1, S2 heard. No murmurs, gallops, or rubs. Regular rate and rhythm. Respiratory: Clear bilaterally to auscultation. No work of breathing or using accessory muscles. Abdomen: Soft, nontender to palpation. Bowel sounds present. No organomegaly. Extremities: No clubbing or cyanosis. Mild edema in both lower extremities. Neurological: Patient is alert and oriented x3. Moves 4 extremities. LABORATORY DATA: White cell count 4.25, hemoglobin 7.1, hematocrit 23.4, platelets 44,000. No BMP today. ASSESSMENT AND PLAN: 1. Altered mental status. Neurology and infectious disease has been following this patient. The workup including CSF analysis, laboratories, and cultures did not show any evidence of infection. Still waiting for the results of the CSF flow cytometry. We appreciate the help of both subspecialties. The last time she spiked a fever was yesterday at 4 p.m. As we mentioned before, I do not see a reason why this patient is still spiking fever; it is because of the lymphoma and leukemia. We have talked with Dr. Crockett about management of this patient. He recommends that this patient can go home and get home health and he can be seen in the office in 2-3 weeks to think about possible addition of chemo if needed. 2. Chronic lymphocytic leukemia/diffuse large B-cell lymphoma. As we mentioned before, this condition is getting worse. The family has refused, as we mentioned before, hospice and they prefer to continue trying chemo. At this point, we are going to send this patient home and he will see Dr. Crockett in the office. 3. Thrombocytopenia related to cancer. Stable. 4. Anemia of chronic disease. The patient's hemoglobin is 7.1 so we have ordered 3 units of blood to be transfused today. But because of history of cancer and probably because he has developed many antigens, blood that will be given to this patient is coming from [facility], so after he gets the 1st unit of blood transfused he will be good to go. cc: Cirilo De Santiago MD
[2017-03-02] MEDS: MELATONIN PO SCH (21:21)
[2017-03-03] MEDS: TORADOL IV SCH ×5 (03:25→22:02)
[2017-03-03] MEDS: OFIRMEV 1000 MG/ISOTONIC SOLN 1,000 MG/100 ML BOTTLE IV SCH ×4 (03:25→22:02)
[2017-03-03] MEDS: HUMULIN R SUBQ SCH ×4 (06:00→22:28)
[2017-03-03 06:15] LABS: BASO% 0.5 % (0.0-0.8); EOS# 0.09 X1000 (0.0-0.7); EOS% 1.5 % (0.0-10.0); HEMATOCRIT 23.3 % (42.0-52.0); HEMOGLOBIN 7.1 g/dL (14.0-18.0); IMM GRAN# 0.04 X1000 (0.0-0.04); IMM GRAN% 0.7 % (0.0-0.5); LYMPH# 1.39 X1000 (1.2-3.4); LYMPH% 23.5 % (20.5-51.1); MANUAL DIFF NEEDED? YES; MCH 28.6 PG (27-31); MCHC 30.5 g/dL (33-37); MONO# 1.72 X1000 (0.11-0.59); MONO% 29.1 % (1.7-9.3); NEUT% 44.7 % (42.2-75.2); PLT 46 X1000 (130-400); RBC 2.48 XMIL (4.7-6.1)
[2017-03-03 07:46] LABS: EOS 1 % (1-10); LYMPHS 26 % (21-51); MONO 12 % (1-9)
[2017-03-03] MEDS: ZINC SULFATE PO SCH (09:09)
[2017-03-03] MEDS: NEURONTIN PO SCH ×3 (09:09→16:59)
[2017-03-03] MEDS: NS 1,000 ML IV SCH ×2 (09:09→20:38)
[2017-03-03] MEDS: PRILOSEC PO SCH (09:10)
--- NOTE | 2017-03-03 11:44 | PROGRESS NOTE ---
DATE: 03/03/2017 SUBJECTIVE: Patient reports feeling fine. Denies any complaint. OBJECTIVE: Vital Signs: Temperature 98.3 degrees, heart rate 98, respiratory rate 18, blood pressure 105/50, O2 satting 100% on room air. General Examination: This is a chronically ill- looking, 61-year-old, male, lying in bed in no acute distress. HEENT: Head is normocephalic, atraumatic. Anicteric sclerae and pale conjunctivae. Mucous membranes moist. Neck: Supple. No JVD noted. No carotid bruits. No lymphadenopathy. No thyromegaly. Cardiovascular exam: S1, S2 heard. No murmurs, gallops, or rubs. Regular rate and rhythm. Respiratory exam: Clear bilaterally to auscultation. No work of breathing or using accessory muscles. Abdomen: Soft, nontender to palpation. Bowel sounds present. No organomegaly. Extremities: No clubbing, cyanosis, or edema. Peripheral pulses present in both legs. Neurological exam: Patient is awake. Moves 4 extremities. LABORATORY DATA: Reviewed. ASSESSMENT AND PLAN: 1. Altered mental status. As we mentioned before, extensive workup ordered by neurology and infectious disease specialist has returned negative so far now. I think this patient is not spiking fever, but those were documented in the chart from the last 3 days I think could be related to the evolution with lymphoma and leukemia. As we mentioned before, this patient is much better today. We will continue with the same management. 2. Chronic lymphocytic leukemia/diffuse large B-cell lymphoma. Dr. Crockett on board. In keeping that this patient will not be a candidate for an active treatment for his condition at this time, so there is in agreement to send this patient back home. He can recover with home health and he can see Dr. Crockett in the office in 2-3 weeks. 1. Thrombocytopenia related to cancer, stable. 2. Anemia of chronic disease. Patient's hemoglobin 7.1. We have ordered blood yesterday, but unfortunately because of many antigens that this patient has developed, the blood that this patient needs is coming from [place]. So, as soon as we can get him transfused, we can send him home. cc: Cirilo De Santiago MD
[2017-03-03] MEDS: LOVENOX SUBQ SCH (12:08)
[2017-03-03] MEDS: MELATONIN PO SCH (22:02)
[2017-03-04] MEDS: OFIRMEV 1000 MG/ISOTONIC SOLN 1,000 MG/100 ML BOTTLE IV SCH ×3 (03:19→16:07)
[2017-03-04] MEDS: TORADOL IV SCH ×3 (03:19→16:07)
--- NOTE | 2017-03-04 05:44 | DISCHARGE SUMMARY ---
ADMISSION DATE: 02/19/2017 DISCHARGE DATE: 03/03/2017 CONSULTATIONS: 1. Dr. Ania Coffman MD with Neurology. 2. Dr. Deepak Crockett with Oncology. PERTINENT PROCEDURES: 1. Cervical spine CT showed moderate multilevel degenerative disease. No evidence of fracture or subluxation. No visible acute intracranial abnormality. No evidence of intracranial injury. 2. Brain MRI showed mild T2 flair signal hyperintensity in the periventricular and subcortical white matter suggesting mild microangiopathy and most likely no evidence of acute intracranial pathology. 3. Abdomen and pelvis CT showed bilateral axillary adenopathy, abdominal and pelvic retroperitoneal adenopathy which has increased. Essential bilateral inguinal adenopathy which has been increased and lymphomas consideration. Mild splenomegaly. No bowel obstruction. No abscess. No free air. 4. Head CT showed no evidence of acute intracranial pathology. DISCHARGE DIAGNOSES: 1. Altered mental status. Extensive workup ordered by Neurology and Infectious Disease specialists has returned negative so far. The patient has been spiking fevers over the last 3 days related to possibly the evolution of a lymphoma leukemia. The patient has had some improvement. 2. Chronic lymphocytic leukemia. Diffuse B-cell lymphoma. Oncology is on board. The patient is not a candidate for active treatment at our facility. patient to Rehab. 3. Thrombocytopenia related to cancer. Stable. 4. Anemia of chronic disease. Patient's hemoglobin A1c is 7.1. Patient has had to have 2 transfusions. However, they have been delayed because of the patient's many antigens and he has had to receive blood from [place]. Those have been transfused. Again, the patient is being transferred to [facility] today. HOSPITAL COURSE: Briefly, the patient is a 61-year-old male followed by Dr. Crockett for non- Hodgkin's lymphoma as well as getting insulin for hyperglycemia secondary to prednisone use. He has also had appendicitis and gallbladder removal. The patient essentially came to the ED for altered mental status. I have reported that he was on chemo for lymphoma. The patient was admitted to the hospital with a consult for Oncology as well as Neurology. He underwent several neurological studies that were all negative. The patient had 2 head CTs, a brain MRI and an EEG that did not show anything acute. He also underwent a lumbar puncture. He was followed by infectious disease. They could not find anything acute. Patient had chosen home with home health but has now decided to go to Rehab awaiting placement. Vital signs at time of discharge, temperature is 98.7 degrees, heart rate 93, respirations 18, blood pressure 124/64, and O2 98% on room air. DISCHARGE MEDICATIONS: Will be as per Dr. Delcid as well as Oncology. DISCHARGE DIET: Mechanical soft with Glucerna. DISPOSITION: REHAB AND CONTINUE TO FOLLOW UP WITH HIS ONCOLOGIST.PATIENT CAN RETURN TO THE ED FOR ANY WORSENING SYMPTOMS Dictated by MONIE Zelaya for Cirilo De Santiago MD cc: Cirilo De Santiago MD [facility]
[2017-03-04] MEDS: HUMULIN R SUBQ SCH ×3 (06:12→16:13)
[2017-03-04] MEDS: ZINC SULFATE PO SCH (08:43)
[2017-03-04] MEDS: PRILOSEC PO SCH (08:43)
[2017-03-04] MEDS: NS 1,000 ML IV SCH (08:43)
[2017-03-04] MEDS: NEURONTIN PO SCH ×3 (08:43→16:09)
[2017-03-04 09:50] LABS: BASO% 0.4 % (0.0-0.8); EOS% 1.5 % (0.0-10.0); HEMATOCRIT 29.5 % (42.0-52.0); HEMOGLOBIN 9.3 g/dL (14.0-18.0); IMM GRAN# 0.03 X1000 (0.0-0.04); IMM GRAN% 0.4 % (0.0-0.5); LYMPH# 1.68 X1000 (1.2-3.4); LYMPH% 24.9 % (20.5-51.1); MANUAL DIFF NEEDED? YES; MCH 29.2 PG (27-31); MCHC 31.5 g/dL (33-37); MCV 92.5 FL (81-99); MONO# 1.81 X1000 (0.11-0.59); MONO% 26.8 % (1.7-9.3); PLT 38 X1000 (130-400); RBC 3.19 XMIL (4.7-6.1)
[2017-03-04 10:03] LABS: AGAP 11; BUN 15 mg/dL (8-22); CALCIUM 10.1 mg/dL (8.8-10.2); CHLORIDE 105 mmol/L (98-107); COSMO 277; SODIUM 137 mmol/L (136-145); TCO2 21 mmol/L (25-35)
[2017-03-04 10:38] LABS: BANDS 6 % (0-1); LYMPHS 22 % (21-51); MONO 20 % (1-9)
--- NOTE | 2017-03-04 11:21 | PROGRESS NOTE ---
DATE: 03/04/2017 SUBJECTIVE: Patient reports feeling fine. More alert and awake. OBJECTIVE: Vital Signs: Temperature 98.3 degrees. Maximum temperature yesterday 103.2. Heart rate 91, respiratory rate 20, blood pressure 116/68, O2 saturation 99% on room air. General Examination: This is a chronically ill-looking, 61-year-old male, lying in bed in no acute distress. HEENT: Head is normocephalic, atraumatic. Anicteric sclerae and pale conjunctivae. Mucous membranes moist. Neck: Supple. No JVD. No carotid bruits. No lymphadenopathy. No thyromegaly. Cardiovascular exam: S1, S2 heard. No murmurs, gallops, or rubs. Regular rate and rhythm. Respiratory exam: Clear bilaterally to auscultation. No work of breathing or using accessory muscles. Abdomen: Soft, nontender to palpation. Bowel sounds present. No organomegaly. Extremities: No clubbing, cyanosis, or edema. Peripheral pulses present in both legs. Neurological exam: Patient alert and oriented x3. Able to move 4 extremities. Cranial nerves 2-12 grossly normal. LABORATORY DATA: Pending. ASSESSMENT/PLAN: 1. Altered mental status. This condition is practically resolved. He is more alert and awake for the last 3 days. As we mentioned before, extensive workup performed by neurology and infectious disease negative so far. We will continue watching this patient closely. 2. Chronic lymphocytic leukemia. There is diffuse large B-cell lymphoma. Dr. Crockett has been following this patient. He recommends to send this patient home with home health so he can be seen in the next 2-3 weeks, but family the last minute has changed his mind, and they decided to send this patient to rehabilitation facility. They have been informed that can take up to the weekend, getting a bed for him, and the best scenario next week between Tuesday and Tuesday. They are okay with that. 3. Thrombocytopenia related to cancer, aware. We are still waiting for from today. 4. Anemia of coronary disease. We had transfused 2 units of blood. We are going to check CBC today. cc: Cirilo De Santiago MD
[2017-03-04] MEDS: LOVENOX SUBQ SCH (12:18)
[2017-03-04] MEDS ORDERED: HEPARIN ONE (15:47)
[2017-03-04 15:53] VITALS: BP 127/72
--- NOTE | 2017-03-07 05:23 | DISCHARGE SUMMARY ---
ADMISSION DATE: 02/19/2017 DISCHARGE DATE: 03/04/2017 ADDENDUM: The patient was discharged home yesterday with home health. However at the time of his discharge, the patient and family decided that he would need rehabilitation placement. [facility] was reconsulted. They have found him bed placement today for rehabilitation, so patient will be discharged. This is MONIE Zelaya, dictating an addendum for Dr. Delcid. Dictated by MONIE Zelaya for Cirilo De Santiago MD cc: Cirilo De Santiago MD
== END 2017-03-04 16:40 ==
LOC: ED 14:32 → 3S 20:37 → SUATTDRO 20:37 → 4N 03-04 11:09
PROVIDERS: ATTEND Internal Medicine

== ENCOUNTER 2017-03-05 21:30 | Inpatient (IN) ==
[2017-03-05] MEDS: OFIRMEV 1000 MG/ISOTONIC SOLN 1,000 MG/100 ML BOTTLE IV SCH (23:36)
[2017-03-05 23:43] LABS: INR 1.18; PROTIME 12.5 Seconds (9.2-11.7); PTT 37.6 Seconds (22.0-36.0)
[2017-03-05 23:45] LABS: AGAP 11; ALBUMIN 2.2 g/dL (3.5-5.0); ALKALINE PHOSPHATASE 182 U/L (32-122); BASO% 0.5 % (0.0-0.8); BUN 14 mg/dL (8-22); CALCIUM 9.7 mg/dL (8.8-10.2); CHLORIDE 98 mmol/L (98-107); CK PROFILE 119 U/L (24-204); COSMO 262; EOS# 0.04 X1000 (0.0-0.7); EOS% 0.4 % (0.0-10.0); GOT 63 U/L (10-34); GPT 23 U/L (10-44); HEMOGLOBIN 8.2 g/dL (14.0-18.0); IMM GRAN# 0.04 X1000 (0.0-0.04); IMM GRAN% 0.4 % (0.0-0.5); MANUAL DIFF NEEDED? NO; MCHC 32.8 g/dL (33-37); MCV 91.6 FL (81-99); MONO# 2.56 X1000 (0.11-0.59); MONO% 26.4 % (1.7-9.3); NEUT% 40.3 % (42.2-75.2); PLT 42 X1000 (130-400); RBC 2.73 XMIL (4.7-6.1); SODIUM 130 mmol/L (136-145); TCO2 21 mmol/L (25-35); TOTAL BILIRUBIN 1.01 mg/dL (0.20-1.00); TOTAL PROTEIN 4.4 g/dL (6.3-8.3)
[2017-03-06] MEDS ORDERED: ROCEPHIN 1 GM/NS 1 GM/50 ML IVPB IV ONE (01:12)
--- NOTE | 2017-03-06 01:38 | PROVIDER DOCUMENTATION ---
This chart was entered by Sweetie Negrete Scribe, acting as scribe for Star Tucker MD. HPI-General Adult - General Chief Complaint: Fever Stated Complaint: pna Time Seen by Provider: 03/05/17 22:26 Source: patient Allergies/Adverse Reactions: Patient Allergies Allergy/AdvReac Type Severity Reaction Status Date / Time No Known Allergies Allergy Verified 03/06/17 01:11 Home Medications: Home Medication List Medication Instructions Recorded Confirmed Last Taken Type Furosemide [Lasix] 20 meq PO Q48H PRN 06/28/16 03/06/17 02/17/17 09:00 History Gabapentin 600 mg PO TID 06/28/16 03/06/17 03/05/17 13:00 History Zinc Sulfate 220 mg PO DAILY 06/28/16 03/06/17 03/05/17 History Hydrocodone/Acetaminophen 5 mg PO Q4-6H PRN PRN #30 tablet 03/03/17 03/06/17 12:35 Rx [Hydrocodon-Acetaminophen 5-325] CefTRIAXONE 1 GM/NS [Rocephin 1 1 gm IM TODAY 03/06/17 03/06/17 03/05/17 13:15 History gm/Ns] - History of Present Illness -Gen Adult Nature of Presenting Problems: Pt is a 61 yom who came to the ED with a cc of fever and confusion. PT was in the hospital for two weeks for AMS and was released yesterday to go to rehab to help him regain strength. Today the pt reports when she arrived to [facility] she found the pt on the floor. The reports the pt has been sleeping all day and has had a fever. PT has non hodgkins lymphoma. Location of Pain/Injury: reports: none Pain Radiation: reports: no radiation Quality of Pain: reports: none Onset/Duration: reports: this morning Timing: reports: still present Context/Activities at Onset: reports: sleep Associated Symptoms: reports: fever/chills Similar Symptoms Previously?: Yes Recently seen or treated by another doctor?: Yes Review of Systems - Adult - REVIEW OF SYSTEMS - ADULT Constitutional: reports: chills, fever. denies: fatique, weight gain Cardiovascular: denies: chest pain, irregular heart rate, orthopnea Neurological: reports: other (sleeping and confusion). denies: loss of balance , seizure Past History - Adult - PAST MEDICAL HISTORY-ADULT Review of Records: reports: Nursing Assessment Review Major Childhood Illnesses: reports: denies history Cardiovascular: reports: denies history Respiratory: reports: sleep apnea Gastrointestinal: reports: denies history Obstetrical/Gynecological: reports: denies history Genitourinary: reports: kidney disease Musculoskeletal: reports: denies history Neurological: reports: Seizures/Epilepsy Psychiatric: reports: other (brain tumor) Endocrine/Immune: reports: Diabetes, Leukemia (Followed by Dr. Crockett) Other Conditions: reports: denies history - PRIOR SURGERIES/PROCEDURES Surgical/Procedure History: reports: appendectomy, cholecystectomy, hernia repair, orthopedic (extremity) (left knee) - PRIOR HOSPITALIZATIONS Prior Hospitalizations: reports: for similar symptoms - IMMUNIZATION STATUS Childhood Immunizations: See Nurse Assessment Flu Vaccine: See Nurse Assessment - FAMILY HISTORY Family History: reviewed, not pertinent Physical Exam-General - PHYSICAL EXAM-ADULT Initial Vital Signs Reviewed: Yes - CONSTITUTIONAL General Appearance: obese, obtunded (mildly) - EYES Eyes: PERRL/EOMI, pink conjunctivae - HEAD, EARS, NOSE, MOUTH & THROAT HENMT: normocephalic/atraumatic, moist mucous membranes - NECK Neck: non-tender, full range of motion - RESPIRATORY Respiratory: chest non-tender, lungs clear, normal breath sounds - CARDIOVASCULAR Cardiovascular: normal peripheral pulses, regular rate, rhythm - GASTROINTESTINAL (ABDOMEN) Abdominal Exam: normal bowel sounds, non tender, soft - MUSCULOSKELETAL Back Exam: normal inspection, no CVA tenderness Extremity: pedal edema. negative: normal range of motion - SKIN Integumentary: warm/dry - NEUROLOGIC Neurologic: grossly normal - PSYCHIATRIC Psych/Mental Status: normal mood/affect, normal thought content, normal thought process, oriented x 3 Progress - PLAN OF CARE/RESULTS Progress/Plan/Lab Results: Vital Signs - 8 hr 03/05/17 21:50 03/05/17 22:43 03/05/17 23:29 Temperature 98.0 F 102.2 F H Pulse Rate 108 H 108 H Respiratory Rate 20 Blood Pressure 97/46 120/57 O2 Sat by Pulse Oximetry 100 95 Laboratory Results - last 24 hr 03/05/17 03/05/17 03/05/17 21:43 21:43 21:43 WBC 9.68 RBC 2.73 L Hgb 8.2 L Hct 25.0 L MCV 91.6 MCH 30.0 MCHC 32.8 L RDW Std Deviation 18.1 H Plt Count 42 L MPV Not Reportable Immature Gran % (Auto) 0.4 Neut % (Auto) 40.3 L Lymph % (Auto) 32.0 Sabine % (Auto) 26.4 H Eos % (Auto) 0.4 Baso % (Auto) 0.5 Immature Gran # (Auto) 0.04 Neut # (Auto) 3.89 Lymph # (Auto) 3.10 Sabine # (Auto) 2.56 H Eos # (Auto) 0.04 Baso # (Auto) 0.05 PT INR PTT (Actin FS) Sodium 130 L Potassium 4.0 Chloride 98 Carbon Dioxide 21 L Anion Gap 11 BUN 14 Creatinine 1.2 BUN/Creatinine Ratio 12 Glucose 103 Calculated Osmolality 262 Calcium 9.7 Total Bilirubin 1.01 H AST 63 H ALT 23 Alkaline Phosphatase 182 H Creatine Kinase 119 Troponin T Total Protein 4.4 L Albumin 2.2 L Globulin 2.2 Albumin/Globulin Ratio 1.0 Plasma Lactate 2.6 H 03/05/17 03/05/17 21:43 21:43 WBC RBC Hgb Hct MCV MCH MCHC RDW Std Deviation Plt Count MPV Immature Gran % (Auto) Neut % (Auto) Lymph % (Auto) Sabine % (Auto) Eos % (Auto) Baso % (Auto) Immature Gran # (Auto) Neut # (Auto) Lymph # (Auto) Sabine # (Auto) Eos # (Auto) Baso # (Auto) PT 12.5 H INR 1.18 PTT (Actin FS) 37.6 H Sodium Potassium Chloride Carbon Dioxide Anion Gap BUN Creatinine BUN/Creatinine Ratio Glucose Calculated Osmolality Calcium Total Bilirubin AST ALT Alkaline Phosphatase Creatine Kinase Troponin T 0.011 Total Protein Albumin Globulin Albumin/Globulin Ratio Plasma Lactate Orders Category Date Time Status Cardiac Monitoring DIRECTED Care 03/05/17 23:04 Active IV Insertion ORDERED Care 03/05/17 23:04 Completed Notify of + Sepsis Screen NOW Care 03/05/17 23:04 Active BLOOD CULTURE [BLDCUL] Stat Lab 03/05/17 21:45 Results CBC WITH DIFF [HEME] Stat Lab 03/05/17 21:43 Completed CK PROFILE [SP CHEM] Stat Lab 03/05/17 21:43 Completed COMPREHENSIVE METABOLIC PANEL [CHEM] Stat Lab 03/05/17 21:43 Completed LACTATE, PLASMA [CHEM] Stat Lab 03/05/17 21:43 Completed PROTIME WITH INR [COAG] Stat Lab 03/05/17 21:43 Completed PTT [COAG] Stat Lab 03/05/17 21:43 Completed TROPONIN T Stat Lab 03/05/17 21:43 Completed Acetaminophen [Ofirmev 1000 mg/Isotonic Soln] Med 03/05/17 23:30 Active 1,000 mg in 100 ml IV Q6H Oxygen Device Stat Oth 03/05/17 23:04 Active Result Diagrams: 03/05/17 21:43 03/05/17 21:43 Departure - Departure Time of Disposition Decision: 01:37 DIAGNOSIS: Fever, Sepsis Disposition: ADMITTED INPATIENT 09 Certified Medical Emergency: Emergent Condition: Stable Referrals and Follow-Ups: None,PCP [Primary Care Provider] - - Critical Care Note This patient required my direct & personal management of CC.: Yes This chart was documented by the indicated scribe, (Sweetie Negrete Scribe) and accurately reflects the services I performed and decisions made by me, Star Tucker MD, as attested by the provider's signature.
[2017-03-06] MEDS ORDERED: SODIUM CHLORIDE IV ONE (02:29)
[2017-03-06] MEDS ORDERED: NS 1,000 ML ONE (02:32)
[2017-03-06] MEDS ORDERED: LASIX PO PRN (03:27)
[2017-03-06] MEDS ORDERED: ZOFRAN IV PRN (03:27)
--- NOTE | 2017-03-06 04:33 | HISTORY AND PHYSICAL ---
HAT BLOCK MAKER: Dr. Crockett. CHIEF COMPLAINT: Weakness, fever, fall. HISTORY OF PRESENT ILLNESS: This is a 61-year-old male who was just discharged from our service on 03/04/2017. He left and went to [facility]. He has a known past medical history of CLL; I believe, more specifically, diffuse B-cell lymphoma. He sees Dr. Crockett for this. He was admitted last admission on 02/19/2017. Over the stay, he saw ID specialist. An infectious source of his fever appeared to be ruled out. He did, I believe, continued to have fevers that were thought to be related to the lymphoma progressing. He was discharged to rehab. Today, the patient's reported that she arrived at [facility] at around 8 a.m. She found the patient on the floor. She was not aware if he had hit his head. He was very lethargic and slept all day, and had a continuous fever that did have a temperature max reportedly around 103. He was sent to the emergency room for further evaluation. On arrival, the patient was found to be mildly lethargic. He did sleep easily in the emergency room. Initial vital signs showed a 98 temperature but within the next hour or so, the patient had a temperature of 102.2 degrees. Chest x-ray was obtained. It was unremarkable. His arrival plasma lactate was at 2.6. On recheck, I believe 2 hours later, the patient's lactate had dropped to 2.2. He will be admitted for further evaluation and treatment. PAST MEDICAL HISTORY: 1. Hypertension. 2. Obstructive sleep apnea. 3. Brain tumor. 4. Diabetes mellitus type 2. 5. CLL. PREVIOUS SURGICAL HISTORY: 1. Appendectomy. 2. Cholecystectomy. 3. Left knee repair. 4. Pituitary surgery. 5. Lymph node biopsies. 6. Laminectomy. 7. Right Port-A-Cath placement. FAMILY HISTORY: Hypertension and cancer. SOCIAL HISTORY: He is . No tobacco, alcohol, or illicit drug use or abuse. ALLERGIES: No known drug allergies. HOME MEDICATIONS: 1. Neurontin 600 mg p.o. t.i.d. 2. Lasix 20 mg p.o. q.48 hours p.r.n. 3. Zinc sulfate 200 mg p.o. daily. 4. [place] 5 mg p.o. q.4-6 hours. REVIEW OF SYSTEMS: Fourteen point review of systems conducted with the patient. He was positive for fever, chills, and weakness. Otherwise denied complaint. Other pertinent positives are listed above in the HPI. All other systems were assessed and found to be negative. PHYSICAL EXAMINATION: VITAL SIGNS: Temperature 100 degrees, temperature max 102.2, pulse 95, respirations 20, blood pressure 110/60, oxygen saturation 95% on room air. GENERAL: Lethargic, 61-year-old male who does arouse to voice. Answers all questions appropriately. In no acute distress. HEENT: Head is atraumatic, normocephalic. Pupils are equal, round, reactive to light. Extraocular eye movement was intact. Oral mucosa was mildly dry. NECK: Supple. No JVD. Trachea is midline. CARDIAC: Regular rhythm. S1 and S2 are appreciated. No murmurs, gallops, or rubs. LUNGS: Clear to auscultation bilaterally. No rhonchi, wheezes, or rales. Symmetrical rise and fall with respirations. ABDOMEN: Protuberant, soft, nondistended, nontender. Bowel sounds present in all 4 quadrants, normoactive. No pulsatile mass. No organomegaly. EXTREMITIES: No clubbing, cyanosis, or edema. There are 1+ pedal pulses bilaterally. GENITOURINARY: The patient voids. Otherwise deferred. SKIN: Warm, dry, and intact. No acute lesions or rash. NEUROLOGIC: The patient is lethargic, does arouse to voice. Answers all questions appropriately. Does fall back to sleep after questions end. DIAGNOSTIC DATA: Chest x-ray: No infiltrate noted. LABORATORY DATA: WBC 9.68, hemoglobin 8.2, hematocrit 25, platelet count 42,000. PT 12.8, INR 1.18, PTT 37.6. Sodium 130, potassium 4, chloride 98, carbon dioxide 21, BUN 14, creatinine 1.2. Plasma lactate 2.6. On recheck, it was 2.2. ASSESSMENT: 1. Febrile illness of unknown etiology. Possibly related to chronic lymphocytic leukemia. Dr. Crockett will be consulted. He was not a candidate for active treatment during his last admission and was discharged 1 day ago. Urine cultures are pending at this time and will be evaluated. Rocephin was given in the emergency room. We will continue Rocephin 1 gm intravenous daily. Blood cultures have been ordered and are pending. 2. Anemia of chronic disease. Patient is around his baseline. We will monitor. 3. Chronic thrombocytopenia related to chronic lymphocytic leukemia, appears to be stable. Again, Dr. Crockett will be consulted. 4. Fall and weakness. CT scan of his head has been ordered. This has not resulted. The patient was noted as being lethargic; however, there is no clear cause. 5. Systemic inflammatory response syndrome. Again, no clear infectious source has been determined. Fluid bolusing was given in the emergency room. The patient was noted to be febrile and tachycardic. 6. Mild intravascular fluid depletion. Again, the patient has received fluid bolusing. We will continue normal saline at 75 mL an hour. 7. Further recommendations per patient's clinical course. Dictated by MONIE Bone for Benigno Don MD cc: MONIE Bone MD Naveen T. Lobo, MD
[2017-03-06 04:54] LABS: URINE CULTURE NEEDED? NO; URINE MICRO REVIEW NEEDED? NO; URINE SOURCE CLEAN CATCH
[2017-03-06 04:56] LABS: BILIRUBIN URINE NEGATIVE (NEGATIVE); BLOOD URINE TRACE (NEGATIVE); COLOR YELLOW; GLUCOSE URINE NEGATIVE (NEGATIVE); LEUKOCYTES URINE NEGATIVE (NEGATIVE); NITRITE URINE NEGATIVE (NEGATIVE); PH URINE 5.5; PROTEIN URINE TRACE mg/dL (NEGATIVE); SP GRAVITY URINE 1.008; TURBIDITY URINE CLEAR (CLEAR); UROBILINOGEN URINE NORMAL (NORMAL)
[2017-03-06 04:57] LABS: UR EPITHELIAL CELLS <10 /HPF (<10); URINE BACTERIA NEGATIVE /HPF; URINE RBC <10 /HPF (<10); URINE WBC <10 /HPF (<10)
[2017-03-06] MEDS: OFIRMEV 1000 MG/ISOTONIC SOLN 1,000 MG/100 ML BOTTLE IV SCH ×3 (05:33→17:08)
[2017-03-06] MEDS: NS 1,000 ML IV SCH ×2 (08:24→16:08)
[2017-03-06] MEDS: ZINC SULFATE PO SCH (08:25)
[2017-03-06] MEDS ORDERED: BLISTEX MEDICATED BERRY LIP BALM TOP PRN (08:43)
[2017-03-06] MEDS: TORADOL IV PRN ×2 (10:02→18:55)
--- NOTE | 2017-03-06 16:09 | Diag Imaging Result Document ---
PROCEDURE NAME: CHEST-PORTABLE - 03/06/2017 PORTABLE CHEST: COMPARISON: 02/28/2017. FINDINGS: Inspiration is mildly shallow, but deeper compared to previous exam. Heart size appears within normal limits. There is slight prominence of central vascular markings. There is no consolidation, pleural effusion, or pneumothorax identified. There are a couple of small granulomas from old granulomatous disease at the lateral right base. Central venous catheter remains in place. IMPRESSION: Mildly shallow inspiration, which is deeper compared to the previous exam. Slight prominence of central vascular markings. No other evidence of acute disease.
--- NOTE | 2017-03-06 16:11 | Diag Imaging Result Document ---
PROCEDURE NAME: HEAD W/O CONTRAST - 03/06/2017 CT HEAD WITHOUT CONTRAST: FINDINGS: A dose reduction protocol was used. Compared with 02/25/2017. There is no evidence of intracranial hemorrhage, mass effect, midline shift, or hydrocephalus. There is no evidence of infarct, although acute infarcts may not be immediately visible. There is no skull fracture. There is apparent periodontal disease noted at the right maxilla. IMPRESSION: 1. No visible acute intracranial abnormality. No evidence of intracranial injury. 2. Apparent periodontal disease noted at right maxilla. A [facility] physician provided preliminary results at 3:41 a.m. on 01/04/2017.
[2017-03-06] MEDS ORDERED: FLEET ENEMA PR ONE (21:18)
[2017-03-06] MEDS ORDERED: FLEET MINERAL OIL ENEMA PR ONE (21:19)
[2017-03-07] MEDS: OFIRMEV 1000 MG/ISOTONIC SOLN 1,000 MG/100 ML BOTTLE IV SCH ×3 (01:15→23:10)
[2017-03-07] MEDS ORDERED: ROCEPHIN 1 GM/NS 1 GM/50 ML IVPB IV SCH (02:00)
[2017-03-07] MEDS: TORADOL IV PRN (05:50)
[2017-03-07 07:14] LABS: BASO% 0.7 % (0.0-0.8); EOS# 0.09 X1000 (0.0-0.7); EOS% 1.2 % (0.0-10.0); HEMATOCRIT 25.9 % (42.0-52.0); HEMOGLOBIN 8.2 g/dL (14.0-18.0); IMM GRAN# 0.04 X1000 (0.0-0.04); IMM GRAN% 0.5 % (0.0-0.5); LYMPH% 27.3 % (20.5-51.1); MANUAL DIFF NEEDED? YES; MCHC 31.7 g/dL (33-37); MCV 91.5 FL (81-99); MONO% 24.6 % (1.7-9.3); NEUT% 45.7 % (42.2-75.2); RBC 2.83 XMIL (4.7-6.1)
[2017-03-07 07:16] LABS: PLT 32 X1000 (130-400)
[2017-03-07 07:32] LABS: BANDS 2 % (0-1); LYMPHS 22 % (21-51)
[2017-03-07 07:33] LABS: MONO 14 % (1-9)
[2017-03-07 07:38] LABS: AGAP 11; ALBUMIN 2.1 g/dL (3.5-5.0); ALKALINE PHOSPHATASE 181 U/L (32-122); BUN 12 mg/dL (8-22); CALCIUM 9.9 mg/dL (8.8-10.2); CHLORIDE 103 mmol/L (98-107); COSMO 268; GOT 64 U/L (10-34); GPT 23 U/L (10-44); MAGNESIUM 1.4 mg/dL (1.5-2.7); POTASSIUM 4.2 mmol/L (3.5-5.1); SODIUM 134 mmol/L (136-145); TCO2 20 mmol/L (25-35); TOTAL BILIRUBIN 1.17 mg/dL (0.20-1.00); TOTAL PROTEIN 4.4 g/dL (6.3-8.3)
[2017-03-07] MEDS: NS 1,000 ML IV SCH (09:05)
[2017-03-07] MEDS: ZINC SULFATE PO SCH (09:05)
--- NOTE | 2017-03-07 09:53 | EKG Report ---
Test Performed on : 03/05/2017 9:48:44 PM Test Reason : ED. Not ordered in [place] Blood Pressure : / mmHG Vent. Rate : 105 BPM Atrial Rate : 105 BPM P-R Int : 176 ms QRS Dur : 084 ms QT Int : 354 ms P-R-T Axes : 045 045 044 degrees QTc Int : 467 ms Sinus tachycardia. Low voltage QRS Borderline ECG When compared with ECG of 23-FEB-2017 10:15, No significant change was found Unconfirmed Result
--- NOTE | 2017-03-07 13:59 | PROGRESS NOTE ---
DATE: 03/07/2017 SUBJECTIVE: Patient reports feeling fine. A little bit sleepy, but I would say in his baseline in comparing with the last admission. OBJECTIVE: Vital Signs: Temperature 100.9 degrees, heart rate 107, respiratory 24, blood pressure 117/56. O2 saturation 97% on room air. General: This is a clinically-looking lethargic 61-year-old male, lying in bed, in no acute distress. HEENT: Head is normocephalic, atraumatic. Anicteric sclerae and pale conjunctivae. Mucous membranes moist. Neck: Supple. No JVD noted. No carotid bruits. No lymphadenopathy. No thyromegaly. Cardiovascular: S1, S2 heard. No murmurs, gallops, or rubs. Regular rate and rhythm. Respiratory: Clear bilaterally to auscultation. No work of breathing or using accessory muscles. Abdomen: Soft, nontender to palpation. Bowel sounds present. No organomegaly. Extremities: No clubbing, cyanosis, or edema. Peripheral pulses present in both legs. Neurological: Patient is lethargic but answers to verbal stimuli. Moves 4 extremities. LABORATORY DATA: Reviewed. ASSESSMENT AND PLAN: 1. Chronic lymphocytic leukemia/lymphoma. 2. Fever secondary to condition #1. 3. Anemia of chronic disease. 4. Fall and weakness. PLAN: Patient has been admitted to the hospital after he was recently discharged 3 days ago to a rehab facility. The patient has a diagnosis of chronic lymphocytic leukemia and also lymphoma. Dr. Crockett was seeing this patient. As per the family, they were informed about this critical situation with this patient and the fact that he had very low platelets, making him not a candidate for any active treatment. So, he suggested to send this patient on hospice but the family refused. Finally they decides to send him to a rehab facility until he gets more strength and his numbers get better s, the patient can be seen again in the office; but unfortunately, two days after he had a fall and he was brought to the hospital. According to Dr. Crockett, there are no more clinical options for him considering the marked thrombocytopenia. Also, he was not a good candidate for a bone marrow transplant. Family is not realistic about the clinical situation of this patient. They do not understand where we are and they request incessantly about to get a 2nd opinion because 1 of the sisters stating that if this patient is being seen by a different group or doctor, there can be other options to offer him. In any case, I will definitely honor their wishes and consult . She was mononitrotoluene operator today. We will see what this 2nd opinion is. If he thinks that there are no more options, then the next step will be to consult hospice. cc: Cirilo De Santiago MD
[2017-03-07] MEDS ORDERED: TORADOL IV PRN (16:15)
--- NOTE | 2017-03-07 16:49 | CONSULTATION ---
DATE OF CONSULTATION: 03/07/2017 REASON FOR CONSULT: The patient is known to us with CLL and diffuse large B- cell lymphoma with a very aggressive disease. HISTORY OF PRESENT ILLNESS: The patient was discharged several days ago from the hospital after having altered mental status and febrile illness with negative workup including MRI brain and lumbar puncture which showed some lymphocytes. He was discharged to rehabilitation and apparently his came in and found patient on the floor. His son states that he had been trying to use the walker by himself previously. The patient also continues to be quite lethargic. Has had a fever with a T-max of 103 degrees. He was sent to the emergency room for further evaluation. A CT of the head has been obtained which shows no acute process. Chest x- ray was also performed which showed no acute processes either. Lab findings showed a white count of 9.68, hemoglobin 8.2, platelet count of 42,001. He has had a fever up to 100.7 since he has been readmitted. Blood cultures are currently pending and he is on Rocephin at this time. REVIEW OF SYSTEMS: Negative unless indicated in the HPI. PAST MEDICAL HISTORY: Lymphoma as above, peripheral neuropathy, diabetes. FAMILY/SOCIAL HISTORY: Denies alcohol, illicit drug, or tobacco usage. ALLERGIES: There is no known allergies. HOME MEDICATIONS: [place], Lasix, Neurontin. PHYSICAL EXAMINATION: Vital signs: Stable. He does have a T-max of 100.7 degrees. Constitutional: This is an male who is lethargic, appears chronically ill. He does follow simple commands. HEENT: Head is normocephalic, atraumatic. Pupils equal, round, symmetric. Oral mucosa dry. Cardiovascular: S1, S2 audible to auscultation without heaves, lifts, thrills, murmurs. Pulmonary: Diminished bilateral bases with normal respiratory effort. Abdomen: Soft, nontender. Positive bowel sounds. Neurologic: Lethargic. Follows simple commands. Skin: No petechiae, ecchymosis, or rash. DIAGNOSTIC DATA: CT of the head and chest x-ray were unremarkable, showed no acute processes. White count today is 7.33, hemoglobin 8.2, hematocrit 25.9, platelet count 32, 000. Sodium 134, potassium 4.2, BUN is 12, and creatinine is 0.9. Total bilirubin is 1.17. ASSESSMENT AND PLAN: 1. Chronic lymphocytic leukemia/diffuse large B-cell lymphoma. He is not a candidate for treatment at this point due to his thrombocytopenia. He is nearing end-stage from his cancer point of view. This has been discussed with the patient and his family in the past as well as his son today. Hospice was also discussed. Patient's son will discuss with other family members. 2. Thrombocytopenia. Likely from bone marrow suppression. 3. Febrile illness. Cultures are pending. He was recently discharged with having the same. Workup had been negative. Blood cultures are again pending. He is on Rocephin currently. 4. Anemia. Transfuse p.r.n. 5. Status post fall and overall weakness. CT of the head showed no acute process. Again, he was recently discharged after having some altered mental status. His extensive workup was negative. We are following along. Dictated by MONIE Haro for Deepak Crockett MD cc: MONIE Haro MD [facility]
[2017-03-07] MEDS: SODIUM CHLORIDE 0.9% INJ SCH (17:17)
[2017-03-07] MEDS: PROTONIX IV SCH (17:18)
[2017-03-07] MEDS ORDERED: NS 1,000 ML IV SCH (20:00)
[2017-03-08] MEDS: OFIRMEV 1000 MG/ISOTONIC SOLN 1,000 MG/100 ML BOTTLE IV SCH ×2 (03:34→10:35)
[2017-03-08 04:55] LABS: ALLEN TEST YES; BE -3.2 mmoll (-3.0-3.0); BLOOD TYPE ARTERIAL; DRAW SITE R RADIAL; METHB 0.9 % (0.0-1.5); O2(CT) 11.5 mL/dL (15.0-23.0); PCO2(98.6) 32 mmHg (35-45); PO2(98.6) 65 mmHg (60-100); SAMPLE BLOOD; SAO2 96.3 % (95.0-100.0); THB 8.8 g/dL (11.5-17.4); pH(98.6) 7.42 (7.35-7.45)
[2017-03-08 04:56] LABS: MODALITY ROOM AIR
[2017-03-08 07:50] LABS: BASO% 0.6 % (0.0-0.8); EOS# 0.05 X1000 (0.0-0.7); EOS% 0.6 % (0.0-10.0); HEMATOCRIT 24.4 % (42.0-52.0); HEMOGLOBIN 7.9 g/dL (14.0-18.0); IMM GRAN# 0.06 X1000 (0.0-0.04); IMM GRAN% 0.7 % (0.0-0.5); LYMPH# 2.11 X1000 (1.2-3.4); LYMPH% 25.5 % (20.5-51.1); MANUAL DIFF NEEDED? YES; MCH 29.3 PG (27-31); MCHC 32.4 g/dL (33-37); MCV 90.4 FL (81-99); MONO# 2.14 X1000 (0.11-0.59); MONO% 25.8 % (1.7-9.3); NEUT% 46.8 % (42.2-75.2)
[2017-03-08 07:51] LABS: PLT 33 X1000 (130-400)
[2017-03-08 09:18] LABS: BANDS 6 % (0-1); LYMPHS 10 % (21-51); MONO 10 % (1-9)
--- NOTE | 2017-03-08 12:24 | PROGRESS NOTE ---
DATE: 03/08/2017 Today Mr. Thibodeaux did not actually respond very much. He only just said that we should get the process for his transfer going. OBJECTIVE: Vital signs: Blood pressure is 122/63, pulse of 109, respiration is 19, temperature 98.6 degrees. General: Mr. Thibodeaux is a 61-year-old male. He is in bed, does not seem to be in any remarkable distress HEENT: Mucosa is pink and moist. Patient has remarkable fluid overload. Chest: Air entry is bilaterally reduced. A few bibasilar crepitations. Cardiovascular: Regular rate and rhythm. Abdomen: Soft, distended, but nontender. Extremities: About 4+ pedal edema. SUPERVISOR LIVESTOCK YARD: Patient is alert but he is slightly drowsy and very minimally cooperative. LABORATORY DATA: WBC is 8.29, hemoglobin is 7.9, platelet count is 33,000. There are only 6% bands on peripheral smear. Sodium is 134, potassium is 4.2, chloride is 103, bicarb is 24. CURRENT MEDICATIONS INCLUDE: 1. Acetaminophen IV. 2. Lasix 20 p.o. q.48. 3. Protonix 40 IV q.24. 4. Normal saline at 50 mL/h. Antibiotics have been discontinued and Toradol has also been discontinued. ASSESSMENT: 1. Diffuse B-cell lymphoma. 2. CLL with remarkable low platelets secondary to bone marrow infiltrates. 3. Anemia related to malignancy. 4. Fever, unclear the source. However all the cultures have been negative. We think this is related to the underlying B-cell/CLL. 5. Poor prognosis. 6. Anasarca. We are going to discontinue the fluid. 7. Protein calorie malnutrition with low albumin. In general, I think Mr. Thibodeaux continues to carry very poor prognosis. I understand from discussions before that there was a decision to make him hospice from his primary oncologist. However the family members want us to transfer him to [place]. I was able to call today and discuss the case with Dr. Fragoso who is the oncologist hydro generation manager and presented the case to him. He said he is going to discuss the case with Dr. Crockett who he happens to know very well and then call me back. Will be pending any further recommendations from him. For now, I will discontinue the fluid and start the patient on some IV Lasix instead of p.o. because of his fluid overload. cc: Toro German MD
[2017-03-08] MEDS: LASIX IV SCH (15:16)
[2017-03-08] MEDS: SODIUM CHLORIDE 0.9% INJ SCH (15:16)
[2017-03-08] MEDS: PROTONIX IV SCH (15:16)
[2017-03-08] MEDS ORDERED: DILAUDID IV PRN (19:26)
[2017-03-08] MEDS: TYLENOL PO PRN (20:20)
[2017-03-09] MEDS: TYLENOL PO PRN
[2017-03-09] MEDS: LASIX IV SCH ×2 (03:43→15:02)
[2017-03-09] MEDS ORDERED: TYLENOL PO PRN (03:44)
[2017-03-09 06:58] LABS: BASO% 0.6 % (0.0-0.8); EOS# 0.05 X1000 (0.0-0.7); EOS% 0.4 % (0.0-10.0); HEMATOCRIT 25.3 % (42.0-52.0); IMM GRAN# 0.07 X1000 (0.0-0.04); IMM GRAN% 0.5 % (0.0-0.5); LYMPH# 3.41 X1000 (1.2-3.4); LYMPH% 26.6 % (20.5-51.1); MANUAL DIFF NEEDED? YES; MCH 28.8 PG (27-31); MCHC 31.6 g/dL (33-37); MONO# 3.05 X1000 (0.11-0.59); MONO% 23.8 % (1.7-9.3); NEUT% 48.1 % (42.2-75.2); PLT 37 X1000 (130-400); RBC 2.78 XMIL (4.7-6.1)
[2017-03-09 07:23] LABS: BANDS 16 % (0-1); LYMPHS 26 % (21-51); MONO 8 % (1-9)
[2017-03-09 07:25] LABS: AGAP 14; ALBUMIN 2.2 g/dL (3.5-5.0); ALKALINE PHOSPHATASE 239 U/L (32-122); BUN 13 mg/dL (8-22); CALCIUM 10.4 mg/dL (8.8-10.2); CHLORIDE 92 mmol/L (98-107); COSMO 254; GOT 80 U/L (10-34); GPT 23 U/L (10-44); POTASSIUM 4.2 mmol/L (3.5-5.1); SODIUM 127 mmol/L (136-145); TCO2 21 mmol/L (25-35); TOTAL BILIRUBIN 1.61 mg/dL (0.20-1.00)
[2017-03-09] MEDS: TYLENOL PR PRN ×2 (15:01→22:21)
[2017-03-09] MEDS: SODIUM CHLORIDE 0.9% INJ SCH (15:15)
[2017-03-09] MEDS: PROTONIX IV SCH (15:15)
[2017-03-09] MEDS ORDERED: SAMSCA PO ONE (15:31)
[2017-03-09] MEDS ORDERED: VANCOMYCIN IV PER PHARMACY MISC SCH (15:45)
--- NOTE | 2017-03-09 16:15 | PROGRESS NOTE ---
DATE: 03/09/2017 SUBJECTIVE: Today Mr. Thibodeaux continues to be altered and minimally responsive. There was a brother and a sister in the room. The son was not there, and the , I have not been able to speak to her. According to them, there has actually been no changes. OBJECTIVE: Vital Signs: Blood pressure is 117/52, pulse of 107, respiration is 12, temperature is 98.3 degrees. The patient this afternoon actually spiked a temperature of 103 degrees. General Exam: Mr. Thibodeaux is a 61-year-old, male. He was in bed, minimally responsive. HEENT: Mucosa is pink and moist. Anicteric. Acyanotic. Neck: Supple. Chest: Air entry is bilaterally reduced. A few bibasilar crepitations. Cardiovascular: Regular rate and rhythm. Abdomen: Soft, is distended, nontender. Extremities: About 3 to 4+ pedal edema. BODY DESIGN CHECKER: Patient is drowsy and sleepy but is easily arousable. Very minimum cooperation. LABORATORY DATA: WBC is 12.84, hemoglobin is 8.0, platelet count is 37,000. There is 60% of bands on peripheral smear. Chemistry is reviewed, sodium is 127, potassium 4.2, total bilirubin is 1.6, AST is 80, ALT is 26, alkaline phosphatase is 239. IMAGING STUDIES: A chest x-ray which was done on arrival shows mild shallow inspiration. ASSESSMENT: 1. Diffuse B-cell lymphoma and also CLL with remarkable thrombocytopenia likely due to bone marrow infiltration. 2. Anemia related to malignancy. 3. Fever of unclear etiology. Patient continues to be febrile. A chest x-ray was unremarkable. However patient is now having 16% of bands on the peripheral smear so I suspect there must be some underlying infection somewhere. I will go ahead and put him on broad-spectrum antibiotics. 4. Anasarca. Noted. 5. 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 6. Protein calorie malnutrition. 7. Altered mental status likely from toxic metabolic encephalopathy. 8. Extremely poor prognosis. I spoke extensively yesterday with Dr. Fragoso, who is an oncologist in [place], and he is also in charge of most of the clinical trials, and according to him, he reviewed all the information from Dr. Crockett and also patient's chart at [facility], and after he reviewed all that he is with the opinion that Mr. Thibodeaux has failed all recommended therapies and that there is nothing else that he will be able to offer if the patient is even transferred to [place]. And for that matter, he would not accept any transfer. He also said since there is nothing to offer he would recommend hospice. 9. I spoke also extensively this morning with Dr. Crockett, who reiterated that he will sign off on Mr. Thibodeaux because there is nothing that he will be able to offer at this point in time, and that he still continues to recommend hospice. GENERAL PLAN: I spoke very extensively with the sister and a brother who were in the room. At this point, they still want everything that can be done to be done. I told them about the plan of Dr. Fragoso in [place], but they are still hopeful that Dr. Brand will be able to do some therapy and help get Mr. Thibodeaux better. I am therefore waiting on the dictation notes from Dr. Brand and also to know what plans he has for Mr. Thibodeaux. cc: Toro German MD
[2017-03-09] MEDS: MAXIPIME 1 GM/NS 1 GM/50 ML IVPB IV SCH (16:56)
[2017-03-09] MEDS ORDERED: VANCOMYCIN 2 GM in NS 500 ML IV SCH (17:00)
[2017-03-09] MEDS ORDERED: MOTRIN LIQUID PO PRN (17:28)
[2017-03-09] MEDS ORDERED: TORADOL IV ONE (21:55)
[2017-03-09] MEDS ORDERED: MORPHINE IV ONE (21:59)
[2017-03-09 22:22] LABS: ALLEN TEST YES; BE -4.3 mmoll (-3.0-3.0); BLOOD TYPE ARTERIAL; DRAW SITE R RADIAL; METHB 0.6 % (0.0-1.5); O2(CT) 12.8 mL/dL (15.0-23.0); PCO2(98.6) 29 mmHg (35-45); PO2(98.6) 76 mmHg (60-100); SAMPLE BLOOD; SAO2 97.9 % (95.0-100.0); THB 9.6 g/dL (11.5-17.4); pH(98.6) 7.43 (7.35-7.45)
[2017-03-09 22:23] LABS: MODALITY CANNULA
[2017-03-10] MEDS: LASIX IV SCH (02:39)
[2017-03-10] MEDS: MAXIPIME 1 GM/NS 1 GM/50 ML IVPB IV SCH (02:45)
[2017-03-10] MEDS ORDERED: SAMSCA PO ONE (05:25)
[2017-03-10 06:19] LABS: BASO% 0.7 % (0.0-0.8); EOS# 0.05 X1000 (0.0-0.7); EOS% 0.2 % (0.0-10.0); HEMATOCRIT 25.7 % (42.0-52.0); HEMOGLOBIN 8.2 g/dL (14.0-18.0); IMM GRAN# 0.17 X1000 (0.0-0.04); IMM GRAN% 0.8 % (0.0-0.5); LYMPH# 5.78 X1000 (1.2-3.4); LYMPH% 27.7 % (20.5-51.1); MANUAL DIFF NEEDED? YES; MCH 29.1 PG (27-31); MCHC 31.9 g/dL (33-37); MCV 91.1 FL (81-99); MONO% 29.3 % (1.7-9.3); NEUT% 41.3 % (42.2-75.2); PLT 41 X1000 (130-400); RBC 2.82 XMIL (4.7-6.1)
[2017-03-10 06:31] LABS: BANDS 2 % (0-1); LYMPHS 24 % (21-51); MONO 18 % (1-9)
[2017-03-10] MEDS: TYLENOL PR PRN ×2 (06:38→21:28)
[2017-03-10 06:50] LABS: ALBUMIN 2.1 g/dL (3.5-5.0); CALCIUM 11.2 mg/dL (8.8-10.2); POTASSIUM 5.3 mmol/L (3.5-5.1); TOTAL BILIRUBIN 1.82 mg/dL (0.20-1.00); TOTAL PROTEIN 4.5 g/dL (6.3-8.3)
[2017-03-10] MEDS ORDERED: MISC. PHARMACY COMMUNICATION SCH (12:30)
[2017-03-10 14:55] LABS: URINE CULTURE NEEDED? NO; URINE SOURCE CATH
[2017-03-10 14:58] LABS: BILIRUBIN URINE NEGATIVE (NEGATIVE); BLOOD URINE SMALL (NEGATIVE); COLOR YELLOW; GLUCOSE URINE NEGATIVE (NEGATIVE); LEUKOCYTES URINE NEGATIVE (NEGATIVE); NITRITE URINE NEGATIVE (NEGATIVE); PH URINE 5.5; PROTEIN URINE 30 mg/dL (NEGATIVE); SP GRAVITY URINE 1.021; TURBIDITY URINE HAZY (CLEAR); URINE MICRO REVIEW NEEDED? YES; UROBILINOGEN URINE 2 mg/dL (NORMAL)
--- NOTE | 2017-03-10 14:59 | PROGRESS NOTE ---
DATE: 03/10/2017 SUBJECTIVE: This morning, Mr. Thibodeaux continues to be declining in medical condition. He has been needing BiPAP from overnight because of hypoxemia and his fever has also been persistently high. OBJECTIVE: Vital signs: Now blood pressure is 99/54, pulse of 109, respirations 36, temperature is 99.9. General: Mr. Thibodeaux is a 61-year-old, male. He is in bed, in mild respiratory distress. HEENT: Mucosa is pink and moist. Anicteric. Acyanotic. Neck: Supple. Chest: Air entry is bilaterally reduced. There are bilateral posterior crepitations. Cardiovascular: Regular rate and rhythm. Abdomen: Soft, distended. Bowel sounds are present. Extremities: About 3-4 pedal edema. INFORMATION TECHNOLOGY OFFICER: Patient is drowsy. Less responsive than yesterday and will barely open his eyes to very painful stimulation. LABORATORY DATA: WBC is 20.85, hemoglobin is 8.2, platelet count is 41. There is 2% of bands on peripheral smear. Sodium is 137, potassium is 5.8, chloride is 90, bicarb is 18. BUN is 25, creatinine is 1.7. ASSESSMENT: 1. Sepsis. Unsure the source. I think it is probably from the lungs. Patient antibiotics have been broadened this morning. He is currently on vancomycin renally dosed. Cefepime. 2. Fluid overload. 3. Acute kidney failure. 4. Altered mental status, likely from toxic metabolic encephalopathy. 5. Fever of unclear etiology. We think it is probably a combination of his cancer and possibly some occult infection. 6. Extreme poor prognosis. 7. Hypoxemic respiratory failure. PLAN: Today, Mr. Thiboedaux looks a whole lot worse. He is now going into multi organ failure, and I think this is all progression of his underlying disease. I spoke extensively with the family members including the who was in the room. For now, they do not want any intubation. They do not want any shock. They do not want any chest compression. We will therefore change his resuscitation status to level 1. They at this point, want only comfort measures. The family was just excessively crying in the room. community health outreach worker was in to assist with support. We will discontinue everything now and keep him comfort care only. cc: MD BERNARDINO Gomez
[2017-03-10 15:23] LABS: UR EPITHELIAL CELLS <10 /HPF (<10); URINE BACTERIA NEGATIVE /HPF; URINE RBC <10 /HPF (<10); URINE WBC <10 /HPF (<10)
[2017-03-10] MEDS ORDERED: ATIVAN IV PRN (15:54)
[2017-03-10] MEDS ORDERED: MORPHINE IV PRN (15:55)
[2017-03-10] MEDS ORDERED: VANCOMYCIN 2 GM in NS 500 ML IV SCH (17:00)
[2017-03-11] MEDS: TYLENOL PR PRN ×2 (03:04→10:01)
[2017-03-11 07:08] LABS: BASO% 0.7 % (0.0-0.8); EOS# 0.05 X1000 (0.0-0.7); EOS% 0.2 % (0.0-10.0); HEMATOCRIT 25.7 % (42.0-52.0); HEMOGLOBIN 8.2 g/dL (14.0-18.0); IMM GRAN# 0.25 X1000 (0.0-0.04); IMM GRAN% 1.2 % (0.0-0.5); LYMPH# 5.61 X1000 (1.2-3.4); LYMPH% 26.9 % (20.5-51.1); MANUAL DIFF NEEDED? YES; MCH 29.1 PG (27-31); MCHC 31.9 g/dL (33-37); MCV 91.1 FL (81-99); MONO% 25.9 % (1.7-9.3); MPV 13.1 FL (7.4-10.4); NEUT% 45.1 % (42.2-75.2); PLT 40 X1000 (130-400); RBC 2.82 XMIL (4.7-6.1)
[2017-03-11 07:19] LABS: BANDS 1 % (0-1); LYMPHS 6 % (21-51); MONO 15 % (1-9)
[2017-03-11 07:20] LABS: HYPOCHROM OCCASIONAL
--- NOTE | 2017-03-11 12:49 | CONSULTATION ---
DATE OF CONSULTATION: 03/07/2017 ADMITTING PHYSICIAN: Benigno Don MD REQUESTING PHYSICIAN: Toro German MD CHIROPRACTIC NEUROLOGIST: Deepak Crockett MD We appreciate this consult. CHIEF COMPLAINT: Second opinion regarding lymphoma. HISTORY OF PRESENT ILLNESS: Mr. Jayy Thibodeaux is a very pleasant, 61-year-old, male with a history of chronic lymphocytic leukemia and diffuse B-cell lymphoma followed by Dr. Crockett. The patient was just discharged from [facility] and was actually undergoing rehabilitation at [facility]. The patient was found down by the patient's at [facility] approximately a.m. on the day of admission. At that time they were unaware if the patient had any injury to his head. He was very lethargic. Upon presentation to [facility], he was found to have fever with a T-max of 103 degrees. Chest x-ray was obtained which was unremarkable. On arrival lactate was found to be 2.6, which dropped to 2.2. The patient was admitted for evaluation and treatment. We are consulted for second opinion regarding treatment of CLL/diffuse B-cell lymphoma. PAST MEDICAL HISTORY: 1. Hypertension. 2. Obstructive sleep apnea. 3. Brain tumor. 4. Diabetes mellitus type 2. 5. CLL. 6. Diffuse B-cell lymphoma. PAST SURGICAL HISTORY: 1. Appendectomy. 2. Cholecystectomy. 3. Left knee repair. 4. Pituitary surgery. 5. Lymph node biopsies. 6. Laminectomy. 7. Right Port-A-Cath placement. FAMILY HISTORY: Significant for cancer in an unknown relative. SOCIAL HISTORY: The patient is . He does not use alcohol, tobacco or illicit drugs. MEDICATIONS ON ADMISSION: 1. Neurontin. 2. Lasix. 3. Zinc. 4. Cunningham. ALLERGIES: No known drug allergies. REVIEW OF SYSTEMS: A 14 point review of systems was attempted and is unable to be obtained as the patient is very somnolent and minimally responsive at this time. PHYSICAL EXAMINATION: General: Mr. Thibodeaux is a 61-year-old, male, lying supine in bed. Minimally responsive. Vital Signs: Temperature 100.2 degrees, blood pressure 119/60, heart rate 109, respirations are 39, O2 saturation 93% on room air. HEENT: Normocephalic, atraumatic. Mucous membranes are pale and somewhat dry. Sclerae is anicteric. Extraocular movements intact. Neck: Supple. Lungs: Clear to auscultation bilaterally. Chest expansion is equal bilaterally. Cardiovascular: S1, S2 is heard without murmur rub or gallop. The patient is tachycardic. Abdomen: Soft, nondistended, nontender. Bowel sounds positive all quadrants. No rebound or guarding noted. Extremities: The patient does have 3+ bilateral lower extremity edema. Dermatologic: No rashes, bruises or lesions. Neurologic: The patient is extremely somnolent and minimally responsive at this time. He is moving all extremities equally and has no apparent focal deficit. LABORATORY DATA: Hemoglobin 7.9, hematocrit 24.4, white blood cell count is 8.29, platelets 33,000. ANC 3.88. On 03/07, sodium 134, potassium 4.2, chloride 103, CO2 is 20, BUN 12, creatinine 0.9, glucose 91, magnesium 1.4, bilirubin 1.17, alkaline phosphatase 181, AST 64, ALT 23. IMAGING STUDIES: MRI of the brain reveals negative acute findings. EEG reveals moderate encephalopathy. No seizure activity. ASSESSMENT AND PLAN: 1. Chronic lymphocytic leukemia /diffuse large B-cell lymphoma. The patient has been treated by Dr. Gomez. We will request records be sent to [facility] and placed on the chart so that we can review treatment. We will make decisions regarding further treatment pending review of these records. 2. Fevers. Cultures are negative. Elevated temperature probably secondary to #1. 3. Anemia and thrombocytopenia with a hemoglobin of 7.9, and platelet count of 33,000. We will continue to follow CBC and agree with transfusions at this time. 4. Fall and weakness. CT of the head is negative for any acute abnormality. 5. Systemic inflammatory response syndrome with no clear infectious source determined. The patient is receiving IV fluid bolus. We will follow along with you and make further recommendations pending outcomes. Dictated by MONIE Oden for Dimitris Brand MD cc: MONIE Oden MD Lloyd James, MD Raphael K. Quansah, MD Naveen T. Lobo, MD
--- NOTE | 2017-03-11 15:20 | PROGRESS NOTE ---
DATE: 03/11/2017 Mr. Thibodeaux is on BiPAP. He is not responding much. A lot of family in the room. OBJECTIVE: Vital signs: He has been spiking a fever 103, pulse 113, respirations 30, blood pressure 73/37. Lungs: Scattered rhonchi. Cardiovascular: Regular rhythm, rate without murmur or S3. Abdomen: Soft. Skin: Warm and dry. DATA: White count 20,820, hematocrit 25, platelet count 40,000. Sodium 127, potassium 5.3, chloride 90, bicarb 18, BUN 25, creatinine 1.7. ASSESSMENT AND PLAN: 1. Chronic lymphocytic leukemia. Diffuse large B-cell lymphoma. The patient has been treated by Dr. Crockett, also been treated in [place] and no further treatment, nothing else to add, appears to be approaching end-stage. 2. Fever. Suspect this is from the lymphoma. Treating empirically. 3. Anemia, thrombocytopenia. Hemoglobin 7.9, platelet count was in 30,000. Suspect this is bone marrow infiltration from lymphoma. 4. Fall, weakness. CT of the head negative for acute abnormalities. 5. Systemic inflammation response syndrome. No clear infection. Going for comfort measures. Review of orders. Samsca 30 mg p.o. was given yesterday, Ativan 1 mg IV q.4. I think family wants to pursue comfort and they realize prognosis is poor. He is currently on vancomycin and cefepime. cc: Bijan Nowak MD
[2017-03-11 20:11] VITALS: BP 80/52
--- NOTE | 2017-05-19 17:07 | DISCHARGE SUMMARY ---
ADMISSION DATE: 03/06/2017 DISCHARGE DATE: 03/11/2017 SUMMARY HISTORY OF PRESENT ILLNESS: This 61-year-old was discharged from our service on 03/04/2017 and went to [facility]. He has a known past medical history of chronic lymphocytic leukemia. Actually more specifically he has diffuse B-cell lymphoma and he has been followed by Dr. Crockett. He was admitted back on 02/19/2017 to ID specialist for an infectious source of his fever to be ruled out. He continued to have fevers without related lymphoma progressing. He was discharged to rehabilitation. His reported they arrived to [facility] around 8 a.m. and found him on the floor. He was not aware that he hit his head. He was very lethargic, slept all day. He continued with fever, temperature max 103. He was sent to the emergency room for further evaluation. On arrival he was found to be mildly lethargic. He did sleep easily in the emergency room. Initial vital signs showed a temperature of 98 degrees but within the next hour patient had a temperature of 102 degrees. Chest x-ray was obtained. PAST MEDICAL HISTORY: Hypertension, obstructive sleep apnea, brain tumor, diabetes mellitus type 2, B-cell lymphoma. PREVIOUS SURGICAL HISTORY: Appendectomy, cholecystectomy, left knee repair, pituitary surgery, lymph node biopsy, laminectomy, right portal catheter placement. HOSPITAL COURSE: The patient admitted for febrile illness. I suspect it was from the B-cell lymphoma. Dr. Crockett was consulted. He was not a candidate for any further treatment and wanted to pursue comfort measures. We did put him empirically on some antibiotics. He has chronic thrombocytopenia related to his chronic lymphoma. Dr. Crockett was consulted. He has CLL with diffuse B-cell lymphoma and he appeared endstage with thrombocytopenia. Fluids were given. Family aware of poor prognosis. Nothing else to add. He had been to [place] for evaluation as well. It appeared he had a systemic inflammatory response probably secondary to the lymphoma. On 03/11/2017 at 20:40 he was found without a pulse or heart sounds and pronounced . cc: Bijan Nowak MD
== END 2017-03-11 20:40 | disposition expired ==
LOC: ED 21:30 → 3N 03-06 01:47 → SUATTDRO 03-06 01:47 → 3N 03-06 03:18
PROVIDERS: ATTEND Emergency Medicine